=== PATIENT | female | born 1995 | race Caucasian/White ===

== ENCOUNTER 2018-12-03 22:43 | Outpatient (CLI) | payer MEDICAID ==
[~2018-12-03] VITALS: Ht 165.1 cm; Wt 88.2 kg
[2018-12-03 23:26] VITALS: BP 119/70; PULSE 107; RESP 18
[2018-12-03] MEDS ORDERED: PREN-19 PO (23:37)
[2018-12-03] MEDS ORDERED: HYDR250V5 IM (23:37)
[2018-12-04] MEDS ORDERED: LACTATED RINGER'S 1,000 ML IV SCH
[2018-12-04] MEDS ORDERED: LACTATED RINGER'S 1,000 ML IV ONE
--- NOTE | 2018-12-04 04:34 | PN ---
Triage Information Date/Time Reason for visit: Uterine contractions Weeks of Gestation 34+ weeks /Para Diabetes: none Hypertention: none Objective Vital Signs Date Temp Pulse Resp B/P (MAP) Pulse Ox O2 O2 Flow FiO2 Time Delivery Rate 12/03/18 98.2 107 18 119/70 Room Air 23:26 (86) Heart Rate: 120's Results/Medications Result Diagram: 12/04/18 0111 Results 24 hrs Laboratory Tests Test 12/03/18 22:45 12/04/18 01:11 Urine Color YELLOW Urine Clarity SLIGHTLY CLOUDY A Urine pH 7.0 Urine Specific [place] 1.017 Urine Ketones NEGATIVE Urine Nitrite NEGATIVE Urine Bilirubin NEGATIVE Urine Urobilinogen NEGATIVE Urine Leukocyte Esterase 1+ H Urine Microscopic RBC 1 Urine Microscopic WBC 23 H Urine Squamous Epithelial Cells MODERATE Urine Hemoglobin NEGATIVE Urine Glucose 1+ H Urine Total Protein NEGATIVE White Blood Count 9.7 Red Blood Count 3.62 L Hemoglobin 10.5 L Hematocrit 32.4 L Mean Corpuscular Volume 89.5 Mean Corpuscular Hemoglobin 29.0 Mean Corpuscular Hemoglobin Concent 32.4 Red Cell Distribution Width 13.0 Platelet Count 233 Mean Platelet Volume 9.5 Immature Granulocytes % 0.800 H Neutrophils % 59.4 Lymphocytes % 26.1 Monocytes % 10.5 Eosinophils % 2.7 Basophils % 0.5 Nucleated Red Blood Cells % 0.0 Immature Granulocytes # 0.080 H Neutrophils # 5.8 Lymphocytes # 2.5 Monocytes # 1.0 H Eosinophils # 0.3 Basophils # 0.1 Nucleated Red Blood Cells # 0.0 Medications Current Medications Lactated Ringer's 1,000 ml @ 125 mls/hr Q8H IV ; Start 12/04/18 at 00:00 Imaging Results Cervical length normal Disposition: Discharge Assessment/Plan After rest and hydration, patient states her contractions spaced out. JERE ARGUETA MD Dec 04, 2018 04:34
--- NOTE | 2018-12-04 05:26 | TRIAGE ---
OB Triage Datetime Report Generated by CPN: 12/04/2018 05:26 Datetime: 12/04/2018 04:32 Stage of : OB Triage Labor Evaluation Frequency: 130 Monitor Mode: External Quality: Mild Pattern: Normal: <= 5 Contractions in 10 Minutes Resting Tone [place]: Relaxed Heart Rate FHR Baseline Rate: 130 Monitor Mode: External US FHR Baseline Changes: No Baseline Change Variability: Moderate 6-25 bpm Accelerations: 15X15 Decelerations: None Category: Category I Datetime: 12/04/2018 03:38 Stage of : OB Triage Labor Evaluation Frequency: 5-15 Monitor Mode: External Quality: Mild Pattern: Normal: <= 5 Contractions in 10 Minutes Resting Tone [place]: Relaxed Contraction Comments: Pt states she feels ucs q30 min Heart Rate FHR Baseline Rate: 125 Monitor Mode: External US FHR Baseline Changes: No Baseline Change Variability: Moderate 6-25 bpm Accelerations: 15X15 Decelerations: None Category: Category I Datetime: 12/04/2018 02:50 Stage of : OB Triage Labor Evaluation Frequency: 2-6 Monitor Mode: External Duration (sec)2399: 20-40 Quality: Mild Pattern: Normal: <= 5 Contractions in 10 Minutes Resting Tone [place]: Relaxed Heart Rate FHR Baseline Rate: 130 Monitor Mode: External US Variability: Moderate 6-25 bpm Accelerations: 15X15 Decelerations: None Category: Category I Datetime: 12/04/2018 02:13 Vaginal Exam Membrane Status: Intact Datetime: 12/04/2018 02:02 Stage of : OB Triage Labor Evaluation Frequency: 2-15 Monitor Mode: External Duration (sec)2399: 10-50 Quality: Mild Pattern: Normal: <= 5 Contractions in 10 Minutes Resting Tone [place]: Relaxed Contraction Comments: Pt states ucs very mild and occas Heart Rate FHR Baseline Rate: 140 Monitor Mode: External US FHR Baseline Changes: No Baseline Change Variability: Moderate 6-25 bpm Accelerations: 15X15 Decelerations: None Category: Category I Pain Assessment Pain Scale: 2 Pain Presence: Intermittent Pain Type: Cramping Pain Location: Abdomen Datetime: 12/04/2018 01:11 Stage of : OB Triage Labor Evaluation Frequency: 3-6 Monitor Mode: External Quality: Mild Pattern: Normal: <= 5 Contractions in 10 Minutes Resting Tone [place]: Relaxed Heart Rate FHR Baseline Rate: 135 Monitor Mode: External US FHR Baseline Changes: No Baseline Change Variability: Moderate 6-25 bpm Accelerations: 15X15 Decelerations: None Category: Category I Datetime: 12/04/2018 01:07 Stage of : OB Triage Pain Assessment Pain Scale: 4 Pain Presence: Intermittent Pain Type: Cramping Pain Location: Abdomen Datetime: 12/04/2018 00:30 Stage of : OB Triage Heart Rate FHR Baseline Rate: 140 Monitor Mode: External US FHR Baseline Changes: No Baseline Change Variability: Moderate 6-25 bpm Accelerations: 15X15 Decelerations: None Category: Category I Datetime: 12/03/2018 23:58 Stage of : OB Triage Monitor Mode: External Quality: Mild Pattern: Normal: <= 5 Contractions in 10 Minutes Resting Tone [place]: Relaxed Heart Rate FHR Baseline Rate: 130 Monitor Mode: External US FHR Baseline Changes: No Baseline Change Variability: Moderate 6-25 bpm Accelerations: 15X15 Decelerations: None Category: Category I Datetime: 12/03/2018 23:51 Time of Arrival: 12/03/2018 22:45 EGA: 34.3 Arrived By: Ambulatory Arrived From: Home Chief Complaint: hx c/s x2 and ptd on aneesh weekly c/o ucs and back pain Movement: Present Contractions: Irregular Time Contractions Began: 12/03/2018 09:00 Contractions: q5-15 Rupture of Membranes: Denies Vaginal Bleeding: None Vaginal Discharge: Denies Recent Sexual Intercouse: Denies Abdominal Trauma: Not Applicable Patient Complaints: Contractions; Back Pain Time Provider Notified: 12/03/2018 23:30 Provider Notified: Dr Fortune Initial Plan: EFM,UA,CVL,EFW,BPP Datetime: 12/03/2018 23:30 Stage of : OB Triage Labor Evaluation Frequency: 2-5 Monitor Mode: External Quality: Mild Pattern: Normal: <= 5 Contractions in 10 Minutes Resting Tone [place]: Relaxed Heart Rate FHR Baseline Rate: 140 Monitor Mode: External US FHR Baseline Changes: No Baseline Change Variability: Moderate 6-25 bpm Accelerations: 15X15 Decelerations: None Category: Category I Datetime: 12/03/2018 23:00 Stage of : OB Triage Maternal Assessment Level of Consciousness: Fully Conscious Headache: Denies Blurred Vision: No Nausea/Vomiting: Denies RUQ Epigastric Pain: Denies Facial Edema: None Monitor Mode: External Resting Tone [place]: Relaxed Heart Rate FHR Baseline Rate: 140 Monitor Mode: External US Pain Assessment Pain Scale: 8 Pain Presence: Intermittent Pain Type: Cramping; Pressure; Ache Pain Location: Abdomen; Back
== END 2018-12-04 04:47 | disposition home or self-care (01) ==
LOC: OBT 22:43 → L-D 22:44 → OBT 12-04 04:47
PROVIDERS: ATTEND Obstetrics & Gynecology
DX: O62.9 Abnormality of forces of labor, unspecified (principal); Z3A.34 34 weeks gestation of pregnancy
CPT/HCPCS: 36415; 76815; 76817; 76818; 81001; 85025; 96360; 96361; J7120; Z7500; G0463

== ENCOUNTER 2018-12-05 10:13 | Outpatient (CLI) | payer MEDICAID ==
[~2018-12-05] VITALS: Ht 170.2 cm; Wt 86.7 kg
[~2018-12-05 10:13] MED LIST: HYDR250V5 IM; PREN-19 PO
[2018-12-05 10:59] VITALS: BP 125/71; PULSE 109; RESP 18; Ht 170.2 cm; Wt 86.7 kg
[2018-12-05] MEDS ORDERED: LACTATED RINGER'S 1,000 ML IV SCH (11:30)
[2018-12-05] MEDS ORDERED: TERBUTALINE 1 MG/ML INJ SC ONE (11:30)
--- NOTE | 2018-12-05 13:42 | TRIAGE ---
OB Triage Datetime Report Generated by CPN: 12/05/2018 13:42 Datetime: 12/05/2018 12:58 Stage of : OB Triage Datetime: 12/05/2018 12:40 Frequency: 0 Monitor Mode: External Pattern: Normal: <= 5 Contractions in 10 Minutes Resting Tone [place]: Relaxed FHR Baseline Rate: 135 Monitor Mode: External US Variability: Moderate 6-25 bpm Accelerations: 10X10 Decelerations: None Category: Category I Pain Scale: 0 Pain Presence: None/Denies Pain Type: N/A Pain Goal: 3 Pain Relief Measures: Comfort Measures Datetime: 12/05/2018 11:43 Frequency: 4-6 Monitor Mode: External Duration (sec)2399: 30-40 Quality: Mild Pattern: Normal: <= 5 Contractions in 10 Minutes Resting Tone [place]: Relaxed FHR Baseline Rate: 135 Monitor Mode: External US Variability: Moderate 6-25 bpm Accelerations: 10X10 Decelerations: None Category: Category I Pain Scale: 7 Pain Presence: Intermittent Pain Type: Cramping Pain Location: Abdomen; Back; Perineum Pain Goal: 3 Pain Relief Measures: Comfort Measures Datetime: 12/05/2018 11:00 Stage of : OB Triage Datetime: 12/05/2018 10:45 Stage of : OB Triage Assessment Type: Triage Level of Consciousness: Fully Conscious DTR's/Clonus: DTRs 2+; No Clonus Headache: Denies Blurred Vision: No Respiratory Effort: Unlabored; Regular Rhythm; Equal Expansion Breath Sounds, Left: Clear and Equal Breath Sounds, Right: Clear and Equal Nausea/Vomiting: Denies RUQ Epigastric Pain: Denies Facial Edema: None Temperature Route: Axillary History of Falling: (0) No Secondary Diagnosis: (0) No Ambulatory Aid: (0) Bedrest/Nurse Assist IV Therapy: (0) No Gait: (0) Normal/Bedrest/Immobile Mental Status: (0) Oriented to Own Ability Fall Score: 0 Fall Risk Score Definition: No Risk: No action required Frequency: 5-6 Monitor Mode: External Duration (sec)2399: 30-50 Quality: Mild Pattern: Normal: <= 5 Contractions in 10 Minutes Resting Tone [place]: Relaxed FHR Baseline Rate: 135 Monitor Mode: External US Variability: Moderate 6-25 bpm Accelerations: None Decelerations: None Category: Category I Pain Scale: 8 Pain Presence: Intermittent Pain Type: Cramping Pain Location: Abdomen; Back Pain Goal: 3 Pain Relief Measures: Comfort Measures Datetime: 12/05/2018 10:44 Time of Arrival: 12/05/2018 10:10 EGA: 34.5 Arrived By: Ambulatory Arrived From: Dr. Bui Chief Complaint: REFERRED FROM CLINIC THIS AM TO R/O PTL, DENIES BLEEDING OR LEAKING OF FLUID, SOME INCONSISTANT ABDOMINAL PAIN Movement: Present Contractions: Occasional Rupture of Membranes: Denies Vaginal Bleeding: None Vaginal Discharge: Denies Recent Sexual Intercouse: Denies Abdominal Trauma: Not Applicable Patient Complaints: Cramping Time Provider Notified: 12/05/2018 11:00 Provider Notified: RUBI Initial Plan: MONITOR, U/A, BPP, CL, IV HYDRATION, TERB
--- NOTE | 2018-12-05 15:18 | PN ---
Triage Information Date/Time December 05, 2018 Reason for visit: Weeks of Gestation 34 weeks and 5 days /Para 3 para 2 Diabetes: none Hypertention: none Additional information 22-year-old with IUP at 34 weeks and 5 days times presented with complaint of uterine contractions. She denied any leaking of fluid, vaginal bleeding or decreased movement. She was seen 2 days ago with the similar symptoms and had been ruled out for labor. Patient received IV hydration and a dose of terbutaline ordered by primary OB attending. Symptoms resolved. Objective Vital Signs Date Temp Pulse Resp B/P (MAP) Pulse Ox O2 O2 Flow FiO2 Time Delivery Rate 12/05/18 98.2 109 18 125/71 10:59 (89) Heart Rate: 130's Heart Rate Comments Category 1 Exam General appearance: Alert and oriented x4 does not appear to be in any acute distress Abdomen: Soft, gravid, fundal height consider gestational age NST: Category 1 Initial location contraction noted on the monitor and resolved after hydration and a dose of terbutaline UA negative BPP: 8/8 Cervical length: 4.1 GEO: 18.2 Laboratory Tests Test 12/05/18 10:45 Urine Color STRAW Urine Clarity SLIGHTLY CLOUDY A Urine pH 6.0 Urine Specific [place] 1.005 Urine Ketones NEGATIVE Urine Nitrite NEGATIVE Urine Bilirubin NEGATIVE Urine Urobilinogen NEGATIVE Urine Leukocyte Esterase TRACE A Urine Microscopic RBC 4 Urine Microscopic WBC 4 Urine Squamous Epithelial Cells FEW Urine Bacteria FEW A Urine Hemoglobin NEGATIVE Urine Glucose NEGATIVE Urine Total Protein NEGATIVE Results/Medications Results 24 hrs Laboratory Tests Test 12/05/18 10:45 Urine Color STRAW Urine Clarity SLIGHTLY CLOUDY A Urine pH 6.0 Urine Specific [place] 1.005 Urine Ketones NEGATIVE Urine Nitrite NEGATIVE Urine Bilirubin NEGATIVE Urine Urobilinogen NEGATIVE Urine Leukocyte Esterase TRACE A Urine Microscopic RBC 4 Urine Microscopic WBC 4 Urine Squamous Epithelial Cells FEW Urine Bacteria FEW A Urine Hemoglobin NEGATIVE Urine Glucose NEGATIVE Urine Total Protein NEGATIVE Imaging Results PROCEDURE: US OB biophysical profile. Ultrasound cervix CLINICAL INDICATION: decreased movements, labor TECHNIQUE: Multiple sonographic images of the pelvis were obtained. In addition, transvaginal images of the cervix were obtained. The images were reviewed on a PACS workstation. COMPARISON: No prior studies are available for comparison. FINDINGS: The cervix measures 4.1 cm in length. There is a single live intrauterine gestation. Cardiac activity is present with 140 beats per minute. There is a vertex presentation. The placenta is fundal. There is no evidence of placental abruption. There is a normal amount of amniotic fluid with an GEO = 18.2 cm. Biophysical profile: movement 2/2 tone 2/2. breathing 2/2 GEO 2/2 Total 05/08 RPTAT: AA . IMPRESSION: Normal biophysical profile. Cervix measures 4.1 cm in length. Disposition: Discharge Assessment/Plan IUP at 34 weeks and 5 days History of x2 contraction, resolved after IV hydration and a dose of terbutaline ordered by primary OB attending Symptoms resolved No evidence of labor Patient doing well. Denies any symptoms. Patient will be discharged home in stable condition Strict labor precaution and kick count and follow-up within 24 hours with primary OB attending discussed with patient Advised the patient to have rest at home with adequate p.o. hydration avoid of sexual intercourse and return to triage if she has any other episodes of lower abdominal pain or contractions, decreased movements vaginal bleeding or any other concerns. Patient verbalized understanding. [place] interpretation used. All questions were answered to patient's best satisfaction. ELIZABETH NEFF MD Dec 05, 2018 15:18
== END 2018-12-05 13:15 | disposition home or self-care (01) ==
LOC: OBT 10:13 → L-D 10:16 → OBT 13:15
PROVIDERS: ATTEND Obstetrics & Gynecology
DX: O62.9 Abnormality of forces of labor, unspecified (principal); Z3A.34 34 weeks gestation of pregnancy
CPT/HCPCS: 36415; 76817; 76818; 81001; 87086; 96360; 96361; 96372; J3105; J7120; Z7500; G0463

== ENCOUNTER 2018-12-08 09:50 | Inpatient (IN) | payer MEDICAID ==
[~2018-12-08] VITALS: Ht 165.1 cm; Wt 85.6 kg
[2018-12-08 09:56] VITALS: Ht 165.1 cm; Wt 85.6 kg
--- NOTE | 2018-12-08 11:19 | TRIAGE ---
OB Triage Datetime Report Generated by CPN: 12/08/2018 11:18 Datetime: 12/08/2018 11:18 Assessment Type: Admission Assessment Maternal Assessment Level of Consciousness: Fully Conscious DTR's/Clonus: DTRs 2+; No Clonus Headache: Denies Blurred Vision: No Respiratory Effort: Unlabored; Regular Rhythm; Equal Expansion Breath Sounds, Left: Clear and Equal Breath Sounds, Right: Clear and Equal Nausea/Vomiting: Denies RUQ Epigastric Pain: Denies Facial Edema: None Fall Risk Assessment History of Falling: (0) No Secondary Diagnosis: (0) No Ambulatory Aid: (0) Bedrest/Nurse Assist IV Therapy: (0) No Gait: (0) Normal/Bedrest/Immobile Mental Status: (0) Oriented to Own Ability Fall Score: 0 Fall Risk Score Definition: No Risk: No action required Datetime: 12/08/2018 11:00 Stage of : OB Triage Maternal Assessment Level of Consciousness: Fully Conscious DTR's/Clonus: DTRs 1+ Headache: Denies Breath Sounds, Left: Clear and Equal Breath Sounds, Right: Clear and Equal Nausea/Vomiting: Denies RUQ Epigastric Pain: Denies Labor Evaluation Frequency: NONE Monitor Mode: External Resting Tone [place]: Relaxed Heart Rate FHR Baseline Rate: 145 Monitor Mode: External US Variability: Moderate 6-25 bpm Accelerations: 15X15 Decelerations: Variable Category: Category I Pain Assessment Pain Scale: 3 Pain Presence: Constant Pain Type: Ache Pain Location: Abdomen Pain Goal: 3 Vaginal Exam Membrane Status: Intact Datetime: 12/08/2018 10:46 Comments: vARIABLE NOTED BASELINE 145 BPM, DOWN TO ABOUT 100 FOR ABOUT 60 SEC AND GOING BACK TO BAS VENITA. PT REPOSITIONED Datetime: 12/08/2018 10:30 Maternal Assessment Level of Consciousness: Fully Conscious DTR's/Clonus: DTRs 1+ Headache: Denies Blurred Vision: No Respiratory Effort: Unlabored Breath Sounds, Left: Clear and Equal Breath Sounds, Right: Clear and Equal Nausea/Vomiting: Denies RUQ Epigastric Pain: Denies Facial Edema: None Labor Evaluation Frequency: NONE Monitor Mode: External Resting Tone [place]: Relaxed Heart Rate FHR Baseline Rate: 145 Monitor Mode: External US Variability: Moderate 6-25 bpm Accelerations: 15X15 Decelerations: Variable Category: Category I Pain Assessment Pain Scale: 3 Pain Presence: Constant Pain Type: Ache Pain Location: Abdomen Pain Goal: 3 Pain Assessment Comments: INCISIONAL PAIN Vaginal Exam Membrane Status: Intact Datetime: 12/08/2018 09:58 Assessment Type: Triage Maternal Assessment Level of Consciousness: Fully Conscious DTR's/Clonus: DTRs 2+; No Clonus Headache: Denies Blurred Vision: No Respiratory Effort: Unlabored; Regular Rhythm; Equal Expansion Breath Sounds, Left: Clear and Equal Breath Sounds, Right: Clear and Equal Nausea/Vomiting: Denies RUQ Epigastric Pain: Denies Lower Extremities Edema: None Degree: None Upper Extremities Edema: None Degree: None Facial Edema: None Fall Risk Assessment History of Falling: (0) No Secondary Diagnosis: (0) No Ambulatory Aid: (0) Bedrest/Nurse Assist IV Therapy: (0) No Gait: (0) Normal/Bedrest/Immobile Mental Status: (0) Oriented to Own Ability Fall Score: 0 Fall Risk Score Definition: No Risk: No action required Datetime: 12/08/2018 09:43 Time of Arrival: 12/08/2018 11:00 EGA: 35.1 Arrived By: Ambulatory Arrived From: Home Chief Complaint: PT CAME IN C/O DFM SINCE 2 DAYS AGO PT ALSO COMPLAINING ABOUT INCION PAIN Movement: Decreased Contractions: Denies/Absent Rupture of Membranes: Denies Vaginal Discharge: Denies Recent Sexual Intercouse: Denies Abdominal Trauma: Not Applicable Additional Patient Complaints: NONE Time Provider Notified: 12/08/2018 10:00 Provider Notified: ESHAGHIAN Initial Plan: NST BPP Datetime: 12/05/2018 10:45 Fall Score: 0 Fall Risk Score Definition: No Risk: No action required Datetime: 12/05/2018 10:44 EGA: 34.5 Datetime: 12/03/2018 23:51 EGA: 34.3
[2018-12-08] MEDS: LACTATED RINGER'S 1,000 ML IV SCH ×2 (13:16→20:08)
--- NOTE | 2018-12-08 13:39 | HP ---
Date/Time of Note Date/Time of Note DATE: 12/08/18 TIME: 13:36 OB - History Hx of Present Free Text/Dictation 35+wks GA with Decreased movements and Non reassuring FHR Care: Good Care Ultrasounds: Normal mid trimester US Medical Complications: None Past Family/Social History * Past Medical, Surgical, Family and Obstetric Histories reviewed from chart. OB Admission Exam Physical Exam Abdomen: WNL Extremities: Normal Reflexes: Normal Membranes: Intact Heart Rate: 140's Decelerations: Variable Decelerations Varibility: Moderate Contractions on Admission: None Last 72 hours Lab Results CBC & BMP 12/08/18 13:24 OB Assessment/Plan Reason for admission: observation Other Assessment: PMH denies PSH denies Allergy NKDA Plan: Expectant Management Other plan: Prolonged monitoring and observation over night IV Hydration Patint is evaluated on behalf of and will follow up on the patent JUAN WISE M.D. Dec 08, 2018 13:39
[2018-12-08] MEDS ORDERED: TERBUTALINE 1 MG/ML INJ SC ONE (19:30)
[2018-12-08] MEDS: DEXAMETHASONE 4 MG/ML 5 ML INJ IM SCH (20:28)
[2018-12-09] MEDS: LACTATED RINGER'S 1,000 ML IV SCH ×3 (03:40→19:22)
[2018-12-09] MEDS: DEXAMETHASONE 4 MG/ML 5 ML INJ IM SCH ×2 (08:33→20:03)
[2018-12-09] MEDS: PRENATAL VITAMIN PO SCH (08:59)
[2018-12-09] MEDS ORDERED: FERROUS SULFATE (EC) 325 MG TAB PO SCH (09:00)
--- NOTE | 2018-12-09 09:09 | QN ---
Documentation Comment patient seen and evaluated no complaints positive movement no contraction no pain vs stable afebrile ab gravid nt extremity no edema no calf tenderness fhr cat 1 toco no ctx a/ iup at 35 wks ga, currently on steroid tx, no sign of labor reassuring heart tracing p/ continue present management perinatology consult repeat urine culture FRANCY VENEGAS MD Dec 09, 2018 09:09
[2018-12-09] MEDS: FERROUS SULFATE (EC) 325 MG TAB PO SCH (21:20)
--- NOTE | 2018-12-10 03:02 | CONS ---
DATE OF ADMISSION: 12/08/2018 DATE OF CONSULTATION: 12/09/2018 HISTORY OF PRESENT ILLNESS: The patient is a G3, P2 at 35 weeks and 2 days, presented with complaint of incisional pain. She was given IV hydration and dexamethasone. She has received 2 doses out of 4 doses. After reviewing the heart monitor, first of all, there are some irritabilities with very infreq uent contractions; however, there is some evidence of early deceleration and 1 possible subtle late, but overall reassuring. RECOMMENDATIONS: To manage the patient in-house with continuous heart tone monitoring. Comple te the dexamethasone. Delivery is recommended in labor if more frequent late deceleration or overall nonreassuring heart tone, otherwise, at 39 weeks; however, if the patient is discharge d, heart tone monitoring twice a week is necessary to assure well-being. Dictated By: ZACK CARLOS MD ST/NTS Conf#: [id number] DID#: [id number] CC: FRANCY VENEGAS MD;*EndCC*
[2018-12-10] MEDS: LACTATED RINGER'S 1,000 ML IV SCH ×4 (03:08→21:47)
[2018-12-10] MEDS: DEXAMETHASONE 4 MG/ML 5 ML INJ IM SCH (08:50)
[2018-12-10] MEDS: FERROUS SULFATE (EC) 325 MG TAB PO SCH ×2 (09:31→21:46)
[2018-12-10] MEDS: PRENATAL VITAMIN PO SCH (09:31)
--- NOTE | 2018-12-10 18:58 | QN ---
Documentation Comment patient seen and evaluated no complaints positive movement no contraction no pain vs stable afebrile ab gravid nt extremity no edema no calf tenderness fhr cat 1 toco no ctx a/ iup at 35 wks ga, currently on steroid tx, no sign of labor reassuring heart tracing p/ continue present management f/u perinatology repeat urine culture FRANCY VENEGAS MD Dec 10, 2018 18:58
[2018-12-11] MEDS: LACTATED RINGER'S 1,000 ML IV SCH (03:34)
[2018-12-11] MEDS: FERROUS SULFATE (EC) 325 MG TAB PO SCH (10:34)
[2018-12-11] MEDS: PRENATAL VITAMIN PO SCH (10:34)
--- NOTE | 2018-12-11 19:19 | DS ---
DATE OF ADMISSION: 12/08/2018 DATE OF DISCHARGE: 12/11/2018 PRIMARY DIAGNOSIS: Intrauterine at 35+ weeks gestational age, decreased movement wit h category 2 tracing. PROCEDURE: None. CONDITION ON DISCHARGE: Stable. DIET: Regular. MEDICATIONS ON DISCHARGE: Continue vitamins. DISCHARGE SUMMARY: Ms. Kelly Wilkerson is a 22-year-old female with the history of previous who was admitted on 12/08/2018 secondary to decreased movement and non-reassuring heart t racing. She was admitted for IV hydration and continued close monitoring. During close monitoring, she had a category 1 tracing with an appropriate biophysical profile. Her tracing was evaluated by Edward Laird who recommends discharge today. The patient was given strict kick count and will foll ow up in the office tomorrow. Orders for nonstress test and biophysical profile were given twice kiki simeon. Dictated By: FRANCY ESTRADA/KATHY Conf#: [id number] DID#: [id number]
== END 2018-12-11 18:15 | disposition home or self-care (01) | DRG 833 ==
LOC: OBT 09:50 → L-D 09:51 → OBT 11:00 → L-D 15:22
PROVIDERS: ADMIT Obstetrics & Gynecology; ATTEND Obstetrics & Gynecology
PROC: 4A1HXCZ Monitoring of Products of Conception, Cardiac Rate, External Approach (ICD-10-PCS; principal; 2018-12-08)
DX: O36.8130 Decreased fetal movements, third trimester, not applicable or unspecified (principal); O76 Abnormality in fetal heart rate and rhythm complicating labor and delivery; O34.219 Maternal care for unspecified type scar from previous cesarean delivery; Z3A.35 35 weeks gestation of pregnancy
CPT/HCPCS: 76818; 80307; 81001; 81003; 85025; 86592; 86900; 86901; 87086; G0463; J1100; J3105; J7120

== ENCOUNTER 2018-12-27 11:18 | Inpatient (IN) | payer MEDICAID ==
[~2018-12-27] VITALS: Ht 170.2 cm; Wt 87.6 kg
[~2018-12-27 11:18] MED LIST changes: -HYDR250V5 IM; +OXYTOCIN 30 UNITS/LR 500 ML BAG IV ONE
[2018-12-27 11:25] VITALS: Ht 170.2 cm; Wt 87.6 kg
[2018-12-27 11:26] VITALS: BP 122/65
[2018-12-27] MEDS ORDERED: LACTATED RINGER'S 1,000 ML IV ONE ×2 (12:00→12:30)
[2018-12-27] MEDS ORDERED: LACTATED RINGER'S 1,000 ML IV SCH ×2 (13:35→22:36)
--- NOTE | 2018-12-27 13:40 | TRIAGE ---
OB Triage Datetime Report Generated by CPN: 12/27/2018 13:39 Datetime: 12/27/2018 12:57 Stage of : OB Triage Labor Evaluation Frequency: IREGULAR Monitor Mode: External Duration (sec)2399: 50 Pattern: Normal: <= 5 Contractions in 10 Minutes Resting Tone Mccleary: Relaxed Heart Rate FHR Baseline Rate: 145 Monitor Mode: External US Accelerations: 15X15 Decelerations: None Category: Category I Pain Assessment Pain Scale: 8 Pain Presence: Constant Pain Type: Contraction Pain Location: Abdomen Pain Goal: 0 Pain Relief Measures: Comfort Measures Datetime: 12/27/2018 11:45 Stage of : OB Triage Labor Evaluation Frequency: IRREGULAR Monitor Mode: External Duration (sec)2399: 60 Pattern: Normal: <= 5 Contractions in 10 Minutes Resting Tone Mccleary: Relaxed Heart Rate FHR Baseline Rate: 145 Monitor Mode: External US Variability: Moderate 6-25 bpm Accelerations: 15X15 Decelerations: None Category: Category I Pain Assessment Pain Scale: 7 Pain Presence: Constant Pain Type: Pressure; Ache Pain Location: Abdomen Pain Goal: 0 Pain Relief Measures: Comfort Measures Datetime: 12/27/2018 11:28 Time of Arrival: 12/27/2018 11:13 EGA: 37.6 Arrived By: Ambulatory Arrived From: Home Chief Complaint: C/O PRESSURE AND PAIN INCSIONAL Movement: Present Contractions: Irregular Rupture of Membranes: Denies Vaginal Bleeding: None Vaginal Discharge: Denies Recent Sexual Intercouse: Denies Abdominal Trauma: Not Applicable Patient Complaints: Contractions Time Provider Notified: 12/27/2018 11:40 Provider Notified: DR. ANGELINE Initial Plan: NST BPP UA C/S, IV HYDRATION Datetime: 12/11/2018 17:14 Labor Evaluation Frequency: 1 Monitor Mode: External Duration (sec)2399: 60 Quality: Mild Resting Tone Mccleary: Relaxed Heart Rate FHR Baseline Rate: 140 Monitor Mode: External US FHR Baseline Changes: No Baseline Change Variability: Moderate 6-25 bpm Accelerations: 15X15 Decelerations: None Category: Category I Datetime: 12/11/2018 16:02 Labor Evaluation Frequency: occasional Monitor Mode: External Quality: Mild Resting Tone Mccleary: Relaxed Heart Rate FHR Baseline Rate: 145 Monitor Mode: External US FHR Baseline Changes: No Baseline Change Variability: Moderate 6-25 bpm Accelerations: 15X15 Decelerations: None Category: Category I Pain Presence: None/Denies Datetime: 12/11/2018 15:06 Labor Evaluation Frequency: occasional Monitor Mode: External Quality: Mild Resting Tone Mccleary: Relaxed Heart Rate FHR Baseline Rate: 140 Monitor Mode: External US FHR Baseline Changes: No Baseline Change Variability: Moderate 6-25 bpm Accelerations: 15X15 Decelerations: None Category: Category I Pain Presence: None/Denies Datetime: 12/11/2018 14:06 Labor Evaluation Frequency: 0 Monitor Mode: External Resting Tone Mccleary: Relaxed Heart Rate FHR Baseline Rate: 140 Monitor Mode: External US FHR Baseline Changes: No Baseline Change Variability: Moderate 6-25 bpm Accelerations: 15X15 Decelerations: None Category: Category I Datetime: 12/11/2018 12:55 Labor Evaluation Frequency: 0 Monitor Mode: External Resting Tone Mccleary: Relaxed Heart Rate FHR Baseline Rate: 130 Monitor Mode: External US FHR Baseline Changes: No Baseline Change Variability: Moderate 6-25 bpm Accelerations: 15X15 Decelerations: None Category: Category I Pain Presence: None/Denies Datetime: 12/11/2018 12:08 Labor Evaluation Frequency: 0 Monitor Mode: External Resting Tone Mccleary: Relaxed Heart Rate FHR Baseline Rate: 130 Monitor Mode: External US FHR Baseline Changes: No Baseline Change Variability: Moderate 6-25 bpm Accelerations: 15X15 Decelerations: None Category: Category I Datetime: 12/11/2018 11:30 Labor Evaluation Frequency: 0 Monitor Mode: External Resting Tone Mccleary: Relaxed Heart Rate FHR Baseline Rate: 130 Monitor Mode: External US FHR Baseline Changes: No Baseline Change Variability: Moderate 6-25 bpm Accelerations: 15X15 Decelerations: None Category: Category I Datetime: 12/11/2018 10:54 Labor Evaluation Frequency: 2 Monitor Mode: External Duration (sec)2399: 40 Quality: Mild Resting Tone Mccleary: Relaxed Heart Rate FHR Baseline Rate: 140 Monitor Mode: External US FHR Baseline Changes: No Baseline Change Variability: Moderate 6-25 bpm Accelerations: 15X15 Decelerations: None Category: Category I Datetime: 12/11/2018 09:49 Labor Evaluation Frequency: occasional Monitor Mode: External Quality: Mild Resting Tone Mccleary: Relaxed Heart Rate FHR Baseline Rate: 140 Monitor Mode: External US FHR Baseline Changes: No Baseline Change Variability: Moderate 6-25 bpm Accelerations: 15X15 Decelerations: None Category: Category I Pain Presence: None/Denies Datetime: 12/11/2018 07:44 Assessment Type: Ongoing Assessment Maternal Assessment Level of Consciousness: Fully Conscious DTR's/Clonus: DTRs 2+; No Clonus Headache: Denies Blurred Vision: No Respiratory Effort: Unlabored; Regular Rhythm; Equal Expansion Breath Sounds, Left: Clear and Equal Breath Sounds, Right: Clear and Equal Nausea/Vomiting: Denies RUQ Epigastric Pain: Denies Facial Edema: None Fall Risk Assessment History of Falling: (0) No Secondary Diagnosis: (0) No Ambulatory Aid: (0) Bedrest/Nurse Assist IV Therapy: (20) Yes Gait: (0) Normal/Bedrest/Immobile Mental Status: (0) Oriented to Own Ability Fall Score: 20 Fall Risk Score Definition: No Risk: No action required Datetime: 12/11/2018 07:43 Labor Evaluation Frequency: 0 Monitor Mode: External Resting Tone Mccleary: Relaxed Heart Rate FHR Baseline Rate: 130 Monitor Mode: External US FHR Baseline Changes: No Baseline Change Variability: Moderate 6-25 bpm Accelerations: 15X15 Decelerations: None Category: Category I Pain Presence: None/Denies Datetime: 12/11/2018 07:00 Monitor Mode: External Pattern: Normal: <= 5 Contractions in 10 Minutes Contraction Comments: occasional Heart Rate FHR Baseline Rate: 135 Monitor Mode: External US FHR Baseline Changes: No Baseline Change Variability: Moderate 6-25 bpm Accelerations: 15X15 Datetime: 12/11/2018 06:00 Monitor Mode: External Pattern: Normal: <= 5 Contractions in 10 Minutes Heart Rate FHR Baseline Rate: 125 Monitor Mode: External US FHR Baseline Changes: No Baseline Change Variability: Moderate 6-25 bpm Accelerations: 15X15 Datetime: 12/11/2018 05:00 Labor Evaluation Frequency: X3 Monitor Mode: External Duration (sec)2399: 60 Pattern: Normal: <= 5 Contractions in 10 Minutes Heart Rate FHR Baseline Rate: 145 Monitor Mode: External US FHR Baseline Changes: No Baseline Change Variability: Moderate 6-25 bpm Datetime: 12/11/2018 04:00 Labor Evaluation Frequency: X3 Monitor Mode: External Pattern: Normal: <= 5 Contractions in 10 Minutes Heart Rate FHR Baseline Rate: 125 Monitor Mode: External US FHR Baseline Changes: No Baseline Change Variability: Moderate 6-25 bpm Accelerations: 15X15 Datetime: 12/11/2018 03:00 Labor Evaluation Frequency: OCC Monitor Mode: External Pattern: Normal: <= 5 Contractions in 10 Minutes Heart Rate FHR Baseline Rate: 130 Monitor Mode: External US FHR Baseline Changes: No Baseline Change Variability: Moderate 6-25 bpm Datetime: 12/11/2018 02:00 Labor Evaluation Frequency: 0 Monitor Mode: External Pattern: Normal: <= 5 Contractions in 10 Minutes Heart Rate FHR Baseline Rate: 135 Monitor Mode: External US FHR Baseline Changes: No Baseline Change Variability: Marked >25 bpm Accelerations: 15X15 Datetime: 12/11/2018 01:00 Monitor Mode: External Pattern: Normal: <= 5 Contractions in 10 Minutes Heart Rate FHR Baseline Rate: 135 Monitor Mode: External US FHR Baseline Changes: No Baseline Change Variability: Moderate 6-25 bpm Datetime: 12/11/2018 00:15 Pain Assessment Comments: patient states pain has resolved Datetime: 12/11/2018 00:00 Labor Evaluation Frequency: occ Monitor Mode: External Pattern: Normal: <= 5 Contractions in 10 Minutes Heart Rate FHR Baseline Rate: 135 Monitor Mode: External US FHR Baseline Changes: No Baseline Change Variability: Moderate 6-25 bpm Accelerations: 15X15 Datetime: 12/10/2018 23:36 Monitor Mode: Palpation Resting Tone Mccleary: Relaxed Datetime: 12/10/2018 23:32 Monitor Mode: Palpation Quality: Moderate Datetime: 12/10/2018 23:05 Pain Assessment Comments: PATIENT C/O LEFT LATERAL SIDE PAIN Datetime: 12/10/2018 23:00 Monitor Mode: External Pattern: Normal: <= 5 Contractions in 10 Minutes Heart Rate FHR Baseline Rate: 125 Monitor Mode: External US FHR Baseline Changes: No Baseline Change Variability: Moderate 6-25 bpm Accelerations: 15X15 Datetime: 12/10/2018 22:00 Labor Evaluation Frequency: 0 Monitor Mode: External Duration (sec)2399: 0 Pattern: Normal: <= 5 Contractions in 10 Minutes Heart Rate FHR Baseline Rate: 130 Monitor Mode: External US FHR Baseline Changes: No Baseline Change Variability: Moderate 6-25 bpm Datetime: 12/10/2018 21:00 Labor Evaluation Frequency: 0 Monitor Mode: External Duration (sec)2399: 0 Pattern: Normal: <= 5 Contractions in 10 Minutes Heart Rate FHR Baseline Rate: 130 Monitor Mode: External US FHR Baseline Changes: No Baseline Change Variability: Moderate 6-25 bpm Decelerations: None Category: Category I Datetime: 12/10/2018 20:31 Assessment Type: Ongoing Assessment Maternal Assessment Level of Consciousness: Fully Conscious Headache: Denies Blurred Vision: No Respiratory Effort: Unlabored; Regular Rhythm; Equal Expansion Breath Sounds, Left: Clear and Equal Breath Sounds, Right: Clear and Equal Nausea/Vomiting: Denies RUQ Epigastric Pain: Denies Lower Extremities Edema: None Degree: None Upper Extremities Edema: None Degree: None Facial Edema: None Fall Risk Assessment History of Falling: (0) No Secondary Diagnosis: (0) No Ambulatory Aid: (0) Bedrest/Nurse Assist IV Therapy: (20) Yes Gait: (0) Normal/Bedrest/Immobile Mental Status: (0) Oriented to Own Ability Fall Score: 20 Fall Risk Score Definition: No Risk: No action required Datetime: 12/10/2018 20:01 Comments: movement audible Datetime: 12/10/2018 20:00 Labor Evaluation Frequency: 0 Monitor Mode: External Duration (sec)2399: 0 Pattern: Normal: <= 5 Contractions in 10 Minutes Heart Rate FHR Baseline Rate: 135 Monitor Mode: External US FHR Baseline Changes: No Baseline Change Variability: Moderate 6-25 bpm Accelerations: 15X15 Datetime: 12/10/2018 19:56 Temperature Route: Oral Pain Assessment Pain Scale: 0 Pain Presence: None/Denies Pain Type: N/A Pain Assessment Comments: patient reports that she is no longer feeling abd pain or 'incisional' pa in. Datetime: 12/10/2018 19:00 Labor Evaluation Frequency: 0 Monitor Mode: External Resting Tone Mccleary: Relaxed Heart Rate FHR Baseline Rate: 140 Monitor Mode: External US FHR Baseline Changes: No Baseline Change Variability: Moderate 6-25 bpm Accelerations: 15X15 Decelerations: None Category: Category I Datetime: 12/10/2018 18:00 Stage of : Antepartum Labor Evaluation Frequency: 0 Monitor Mode: External Pattern: Normal: <= 5 Contractions in 10 Minutes Heart Rate FHR Baseline Rate: 140 Monitor Mode: External US FHR Baseline Changes: No Baseline Change Variability: Moderate 6-25 bpm Accelerations: 15X15 Decelerations: None Category: Category I Datetime: 12/10/2018 17:02 Labor Evaluation Frequency: OCC Monitor Mode: External Quality: Mild Pattern: Normal: <= 5 Contractions in 10 Minutes Heart Rate FHR Baseline Rate: 130 Monitor Mode: External US FHR Baseline Changes: No Baseline Change Variability: Moderate 6-25 bpm Accelerations: 15X15 Decelerations: None Category: Category I Datetime: 12/10/2018 17:01 Stage of : Antepartum Temperature Route: Oral Pain Assessment Pain Scale: 0 Pain Presence: None/Denies Pain Goal: 0 Datetime: 12/10/2018 16:00 Labor Evaluation Frequency: OCC Monitor Mode: External Duration (sec)2399: 60 Quality: Mild Resting Tone Mccleary: Relaxed Heart Rate FHR Baseline Rate: 130 Monitor Mode: External US FHR Baseline Changes: No Baseline Change Variability: Moderate 6-25 bpm Accelerations: 15X15 Decelerations: None Category: Category I Datetime: 12/10/2018 15:00 Labor Evaluation Frequency: none Monitor Mode: External Pattern: Normal: <= 5 Contractions in 10 Minutes Heart Rate FHR Baseline Rate: 130 Monitor Mode: External US Variability: Moderate 6-25 bpm Accelerations: 15X15 Decelerations: None Category: Category I Datetime: 12/10/2018 14:00 Labor Evaluation Frequency: 0 Monitor Mode: External Pattern: Normal: <= 5 Contractions in 10 Minutes Resting Tone Mccleary: Relaxed Heart Rate FHR Baseline Rate: 130 Monitor Mode: External US FHR Baseline Changes: No Baseline Change Variability: Moderate 6-25 bpm Accelerations: 15X15 Decelerations: None Category: Category I Datetime: 12/10/2018 13:00 Labor Evaluation Frequency: 0 Monitor Mode: External Pattern: Normal: <= 5 Contractions in 10 Minutes Resting Tone Mccleary: Relaxed Heart Rate FHR Baseline Rate: 130 Monitor Mode: External US FHR Baseline Changes: No Baseline Change Variability: Moderate 6-25 bpm Accelerations: 15X15 Decelerations: None Category: Category I Datetime: 12/10/2018 12:12 Labor Evaluation Frequency: 0 Monitor Mode: External Resting Tone Mccleary: Relaxed Heart Rate FHR Baseline Rate: 140 Monitor Mode: External US FHR Baseline Changes: No Baseline Change Variability: Moderate 6-25 bpm Accelerations: 15X15 Decelerations: None Category: Category I Datetime: 12/10/2018 12:11 Stage of : Antepartum Temperature Route: Oral Pain Assessment Pain Scale: 0 Pain Presence: None/Denies Pain Goal: 0 Datetime: 12/10/2018 11:30 Labor Evaluation Frequency: 0 Monitor Mode: External Pattern: Normal: <= 5 Contractions in 10 Minutes Resting Tone Mccleary: Relaxed Heart Rate FHR Baseline Rate: 140 Monitor Mode: External US FHR Baseline Changes: No Baseline Change Variability: Moderate 6-25 bpm Accelerations: 15X15 Decelerations: None Category: Category I Datetime: 12/10/2018 10:30 Labor Evaluation Frequency: 0 Monitor Mode: External Pattern: Normal: <= 5 Contractions in 10 Minutes Resting Tone Mccleary: Relaxed Heart Rate FHR Baseline Rate: 140 Monitor Mode: External US FHR Baseline Changes: No Baseline Change Variability: Moderate 6-25 bpm Accelerations: 15X15 Decelerations: None Category: Category I Datetime: 12/10/2018 09:37 Labor Evaluation Frequency: OCC Monitor Mode: External Duration (sec)2399: 40 Quality: Mild Pattern: Normal: <= 5 Contractions in 10 Minutes Resting Tone Mccleary: Relaxed Heart Rate FHR Baseline Rate: 130 Monitor Mode: External US FHR Baseline Changes: No Baseline Change Variability: Moderate 6-25 bpm Accelerations: 15X15 Decelerations: None Category: Category I Datetime: 12/10/2018 09:31 Stage of : Antepartum Datetime: 12/10/2018 08:37 Assessment Type: Ongoing Assessment Maternal Assessment Level of Consciousness: Fully Conscious DTR's/Clonus: DTRs 2+; No Clonus Headache: Denies Blurred Vision: No Respiratory Effort: Unlabored; Regular Rhythm; Equal Expansion Breath Sounds, Left: Clear and Equal Breath Sounds, Right: Clear and Equal Nausea/Vomiting: Denies RUQ Epigastric Pain: Denies Lower Extremities Edema: None Degree: None Upper Extremities Edema: None Degree: None Facial Edema: None Fall Risk Assessment History of Falling: (0) No Secondary Diagnosis: (0) No Ambulatory Aid: (0) Bedrest/Nurse Assist IV Therapy: (20) Yes Gait: (0) Normal/Bedrest/Immobile Mental Status: (0) Oriented to Own Ability Fall Score: 20 Fall Risk Score Definition: No Risk: No action required Datetime: 12/10/2018 08:33 Labor Evaluation Frequency: OCC Monitor Mode: External Quality: Mild Pattern: Normal: <= 5 Contractions in 10 Minutes Resting Tone Mccleary: Relaxed Contraction Comments: DOES NOT FEEL CONTRACTIONS Heart Rate FHR Baseline Rate: 135 Monitor Mode: External US FHR Baseline Changes: No Baseline Change Variability: Moderate 6-25 bpm Accelerations: 15X15 Decelerations: None Category: Category I Datetime: 12/10/2018 08:22 Stage of : Antepartum Datetime: 12/10/2018 08:15 Stage of : Antepartum Temperature Route: Oral Pain Assessment Pain Scale: 0 Pain Presence: None/Denies Pain Goal: 0 Datetime: 12/10/2018 07:00 Labor Evaluation Frequency: x1 with irritability Monitor Mode: External Duration (sec)2399: 40 Heart Rate FHR Baseline Rate: 130 Monitor Mode: External US Variability: Moderate 6-25 bpm Accelerations: 15X15 Decelerations: None Category: Category I Datetime: 12/10/2018 06:00 Labor Evaluation Frequency: irritability Monitor Mode: External Heart Rate FHR Baseline Rate: 125 Monitor Mode: External US Variability: Moderate 6-25 bpm Accelerations: 15X15 Decelerations: Variable Category: Category II Comments: Some loss of contact Datetime: 12/10/2018 05:21 Resting Tone Mccleary: Relaxed Contraction Comments: Abdomen soft on palpation. No contractions palpated at this time. Pain Assessment Pain Scale: 0 Pain Presence: None/Denies Pain Type: N/A Datetime: 12/10/2018 05:00 Labor Evaluation Frequency: none Monitor Mode: External Heart Rate FHR Baseline Rate: 130 Monitor Mode: External US Variability: Moderate 6-25 bpm Accelerations: 15X15 Decelerations: None Category: Category I Comments: Some loss of contact Datetime: 12/10/2018 04:34 Resting Tone Mccleary: Relaxed Contraction Comments: Abdomen soft on palpation. No contractions palpated at this time. Comments: Active movement noted on palpation. Datetime: 12/10/2018 04:05 Stage of : Antepartum Temperature Route: Oral Comments: Patient states she feels active movement Pain Assessment Pain Scale: 0 Pain Presence: None/Denies Pain Type: N/A Pain Assessment Comments: Patient is sleeping in between care. Patient appears comforable. Datetime: 12/10/2018 04:00 Labor Evaluation Frequency: x1 with irritability Monitor Mode: External Duration (sec)2399: 80 Heart Rate FHR Baseline Rate: 120 Monitor Mode: External US Variability: Moderate 6-25 bpm Accelerations: 15X15 Decelerations: None Category: Category I Comments: Some loss of contact Datetime: 12/10/2018 03:08 Pain Assessment Comments: Patient is sleeping and appears comfortable. Datetime: 12/10/2018 03:00 Labor Evaluation Frequency: x4 Monitor Mode: External Duration (sec)2399: 40-70 Heart Rate FHR Baseline Rate: 120 Monitor Mode: External US Variability: Moderate 6-25 bpm Accelerations: 15X15 Decelerations: None Category: Category I Datetime: 12/10/2018 02:25 Resting Tone Mccleary: Relaxed Contraction Comments: Abdomen soft on palpation. No contractions palpated at this time. Pain Assessment Pain Scale: 0 Pain Presence: None/Denies Pain Type: N/A Pain Assessment Comments: Patient is sleeping in between care. Patient appears comfortable. Datetime: 12/10/2018 02:00 Labor Evaluation Frequency: x4 Monitor Mode: External Duration (sec)2399: 40-70 Heart Rate FHR Baseline Rate: 120 Monitor Mode: External US Variability: Moderate 6-25 bpm Accelerations: Prolonged Decelerations: None Category: Category I Comments: Some loss of contact Datetime: 12/10/2018 01:00 Labor Evaluation Frequency: x5 with irritability Monitor Mode: External Duration (sec)2399: 40-130 Heart Rate FHR Baseline Rate: 125 Monitor Mode: External US Variability: Moderate 6-25 bpm Accelerations: 15X15 Decelerations: Late Category: Category II Comments: Some loss of contact Datetime: 12/10/2018 00:51 Resting Tone Mccleary: Relaxed Contraction Comments: Abdomen soft on palpation. No contractions palpated Pain Assessment Pain Scale: 0 Pain Presence: None/Denies Pain Type: N/A Pain Assessment Comments: Patient sleeping in between care. Datetime: 12/10/2018 00:00 Labor Evaluation Frequency: x1 with irritability Monitor Mode: External Duration (sec)2399: 50 Heart Rate FHR Baseline Rate: 125 Monitor Mode: External US Variability: Moderate 6-25 bpm Accelerations: Prolonged Decelerations: None Category: Category I Datetime: 12/09/2018 23:57 Stage of : Antepartum Temperature Route: Oral Pain Assessment Pain Scale: 0 Pain Presence: None/Denies Pain Type: N/A Pain Assessment Comments: Patient denies feeling contractions at this time (Annotations: Patient sl eeping in between care. ) Datetime: 12/09/2018 23:00 Labor Evaluation Frequency: none Monitor Mode: External Heart Rate FHR Baseline Rate: 130 Monitor Mode: External US Variability: Moderate 6-25 bpm Accelerations: 15X15 Decelerations: None Category: Category I Comments: Some loss of contact Datetime: 12/09/2018 22:15 Pain Assessment Pain Scale: 0 Pain Presence: None/Denies Pain Type: N/A Datetime: 12/09/2018 22:00 Labor Evaluation Frequency: x2 Monitor Mode: External Duration (sec)2399: 40-70 Heart Rate FHR Baseline Rate: 130 Monitor Mode: External US Variability: Moderate 6-25 bpm Accelerations: 15X15 Decelerations: None Category: Category I Comments: Some loss of contact Datetime: 12/09/2018 21:52 Resting Tone Mccleary: Relaxed Contraction Comments: Abdomen soft on palpation. No contractions palpated at this time. Comments: Active movement noted per palpation at this time. Patient states she feels active f etal movement. Pain Assessment Pain Scale: 0 Pain Presence: None/Denies Pain Type: N/A Datetime: 12/09/2018 21:23 Resting Tone Mccleary: Relaxed Pain Assessment Pain Scale: 0 Pain Presence: None/Denies Pain Type: N/A Datetime: 12/09/2018 21:00 Labor Evaluation Frequency: x3 Monitor Mode: External Duration (sec)2399: 40-100 Heart Rate FHR Baseline Rate: 135 Monitor Mode: External US Variability: Moderate 6-25 bpm Accelerations: Prolonged Decelerations: None Category: Category I Datetime: 12/09/2018 20:07 Pain Assessment Pain Scale: 0 Pain Presence: None/Denies Pain Type: N/A Datetime: 12/09/2018 20:00 Labor Evaluation Frequency: none Monitor Mode: External Heart Rate FHR Baseline Rate: 135 Monitor Mode: External US Variability: Moderate 6-25 bpm Accelerations: Prolonged Decelerations: None Category: Category I Comments: Some loss of contact Datetime: 12/09/2018 19:20 Stage of : Antepartum Assessment Type: Ongoing Assessment Maternal Assessment Level of Consciousness: Fully Conscious DTR's/Clonus: DTRs 2+; No Clonus Headache: Denies Blurred Vision: No Respiratory Effort: Unlabored; Regular Rhythm; Equal Expansion Breath Sounds, Left: Clear and Equal Breath Sounds, Right: Clear and Equal Nausea/Vomiting: Denies RUQ Epigastric Pain: Denies Lower Extremities Edema: None Degree: None Upper Extremities Edema: None Degree: None Facial Edema: None Temperature Route: Oral Fall Risk Assessment History of Falling: (0) No Secondary Diagnosis: (0) No Ambulatory Aid: (0) Bedrest/Nurse Assist IV Therapy: (20) Yes Gait: (0) Normal/Bedrest/Immobile Mental Status: (0) Oriented to Own Ability Fall Score: 20 Fall Risk Score Definition: No Risk: No action required Comments: Patient states she feels active movement. Pain Assessment Pain Scale: 7 Pain Presence: Intermittent Pain Type: Ache Pain Location: Abdomen Pain Relief Measures: Comfort Measures Pain Assessment Comments: Patient denies feeling contractions at this time. Datetime: 12/09/2018 19:17 Resting Tone Mccleary: Relaxed Contraction Comments: Abdomen soft on palpation. Datetime: 12/09/2018 18:48 Labor Evaluation Frequency: 2 Monitor Mode: External Duration (sec)2399: 60-100 Quality: Mild Resting Tone Mccleary: Relaxed Heart Rate FHR Baseline Rate: 130 Monitor Mode: External US FHR Baseline Changes: No Baseline Change Variability: Moderate 6-25 bpm Accelerations: 15X15 Decelerations: None Category: Category I Datetime: 12/09/2018 18:00 Labor Evaluation Frequency: 0ccasional irritability Monitor Mode: External Quality: Mild Resting Tone Mccleary: Relaxed Heart Rate FHR Baseline Rate: 140 Monitor Mode: External US FHR Baseline Changes: No Baseline Change Variability: Moderate 6-25 bpm Accelerations: 15X15 Decelerations: None Category: Category I Pain Assessment Pain Scale: 2 Pain Presence: Intermittent Pain Type: Contraction Datetime: 12/09/2018 16:48 Labor Evaluation Frequency: 1 Monitor Mode: External Duration (sec)2399: 50 Quality: Mild Resting Tone Mccleary: Relaxed Heart Rate FHR Baseline Rate: 130 Monitor Mode: External US FHR Baseline Changes: No Baseline Change Variability: Moderate 6-25 bpm Accelerations: 15X15 Decelerations: None Category: Category I Datetime: 12/09/2018 16:04 Labor Evaluation Frequency: 0 Monitor Mode: External Resting Tone Mccleary: Relaxed Heart Rate FHR Baseline Rate: 140 Monitor Mode: External US FHR Baseline Changes: No Baseline Change Variability: Moderate 6-25 bpm Accelerations: 15X15 Decelerations: None Category: Category I Datetime: 12/09/2018 15:03 Labor Evaluation Frequency: 2 Monitor Mode: External Duration (sec)2399: 40 Quality: Mild Resting Tone Mccleary: Relaxed Heart Rate FHR Baseline Rate: 130 Monitor Mode: External US FHR Baseline Changes: No Baseline Change Variability: Moderate 6-25 bpm Accelerations: 15X15 Decelerations: None Category: Category I Datetime: 12/09/2018 14:02 Labor Evaluation Frequency: 1 Monitor Mode: External Duration (sec)2399: 60 Quality: Mild Resting Tone Mccleary: Relaxed Heart Rate FHR Baseline Rate: 130 Monitor Mode: External US FHR Baseline Changes: No Baseline Change Variability: Moderate 6-25 bpm Accelerations: 15X15 Decelerations: None Category: Category I Datetime: 12/09/2018 13:51 Pain Assessment Comments: pt continues to complain of intermittent pain in incision site Datetime: 12/09/2018 13:01 Labor Evaluation Frequency: 0 Monitor Mode: External Resting Tone Mccleary: Relaxed Heart Rate FHR Baseline Rate: 130 Monitor Mode: External US FHR Baseline Changes: No Baseline Change Variability: Moderate 6-25 bpm Accelerations: 15X15 Decelerations: Late; Variable Category: Category II Datetime: 12/09/2018 12:02 Labor Evaluation Frequency: irritability Monitor Mode: External Quality: Mild Resting Tone Mccleary: Relaxed Heart Rate FHR Baseline Rate: 150 Monitor Mode: External US FHR Baseline Changes: No Baseline Change Variability: Moderate 6-25 bpm Accelerations: 15X15 Decelerations: None Category: Category I Datetime: 12/09/2018 11:43 Pain Assessment Pain Scale: 9 Pain Type: Contraction Datetime: 12/09/2018 09:58 Labor Evaluation Frequency: x3 Monitor Mode: External Duration (sec)2399: 60 Quality: Mild Pattern: Normal: <= 5 Contractions in 10 Minutes Resting Tone Mccleary: Relaxed Contraction Comments: uc with irritability Heart Rate FHR Baseline Rate: 145 Monitor Mode: External US Variability: Moderate 6-25 bpm Accelerations: 15X15 Decelerations: None Category: Category I Datetime: 12/09/2018 08:59 Labor Evaluation Frequency: OCC Monitor Mode: External Duration (sec)2399: 50-60 Quality: Mild Pattern: Normal: <= 5 Contractions in 10 Minutes Resting Tone Mccleary: Relaxed Heart Rate FHR Baseline Rate: 135 Monitor Mode: External US Variability: Moderate 6-25 bpm Accelerations: 15X15 Decelerations: None Category: Category I Datetime: 12/09/2018 07:58 Labor Evaluation Frequency: x2 Monitor Mode: External Duration (sec)2399: 60-70 Quality: Mild Pattern: Normal: <= 5 Contractions in 10 Minutes Resting Tone Mccleary: Relaxed Contraction Comments: uc with irritability Heart Rate FHR Baseline Rate: 135 Monitor Mode: External US Variability: Moderate 6-25 bpm Accelerations: 15X15 Decelerations: None Category: Category I Pain Assessment Pain Scale: 8 Pain Presence: Intermittent Pain Type: Pressure Pain Location: Abdomen Pain Goal: 3 Pain Assessment Comments: lower abd. pain Datetime: 12/09/2018 07:26 Assessment Type: Ongoing Assessment Maternal Assessment Level of Consciousness: Fully Conscious DTR's/Clonus: DTRs 2+; No Clonus Headache: Denies Blurred Vision: No Respiratory Effort: Unlabored; Regular Rhythm; Equal Expansion Breath Sounds, Left: Clear and Equal Breath Sounds, Right: Clear and Equal Nausea/Vomiting: Denies RUQ Epigastric Pain: Denies Lower Extremities Edema: None Degree: None Upper Extremities Edema: None Facial Edema: None Fall Risk Assessment History of Falling: (0) No Secondary Diagnosis: (0) No Ambulatory Aid: (0) Bedrest/Nurse Assist IV Therapy: (20) Yes Gait: (0) Normal/Bedrest/Immobile Mental Status: (0) Oriented to Own Ability Fall Score: 20 Fall Risk Score Definition: No Risk: No action required Datetime: 12/09/2018 07:00 Stage of : Antepartum Labor Evaluation Frequency: irregular Monitor Mode: External Pattern: Normal: <= 5 Contractions in 10 Minutes Resting Tone Mccleary: Relaxed Heart Rate FHR Baseline Rate: 135 Monitor Mode: External US Variability: Moderate 6-25 bpm Accelerations: 15X15 Decelerations: None Category: Category I Datetime: 12/09/2018 06:27 Assessment Type: Ongoing Assessment Datetime: 12/09/2018 06:00 Stage of : Antepartum Labor Evaluation Frequency: irregular Monitor Mode: External Pattern: Normal: <= 5 Contractions in 10 Minutes Resting Tone Mccleary: Relaxed Heart Rate FHR Baseline Rate: 135 Monitor Mode: External US Variability: Moderate 6-25 bpm Accelerations: 15X15 Decelerations: None Category: Category I Datetime: 12/09/2018 05:00 Stage of : Antepartum Labor Evaluation Frequency: irregular Monitor Mode: External Pattern: Normal: <= 5 Contractions in 10 Minutes Resting Tone Mccleary: Relaxed Heart Rate FHR Baseline Rate: 125 Monitor Mode: External US Variability: Moderate 6-25 bpm Accelerations: 15X15 Decelerations: Variable Category: Category II Comments: possible loss of contact picking up maternal heart rate. Datetime: 12/09/2018 04:30 Stage of : Antepartum Labor Evaluation Frequency: irregular Monitor Mode: External Pattern: Normal: <= 5 Contractions in 10 Minutes Resting Tone Mccleary: Relaxed Heart Rate FHR Baseline Rate: 130 Monitor Mode: External US Variability: Moderate 6-25 bpm Accelerations: 15X15 Decelerations: None Category: Category I Datetime: 12/09/2018 03:34 Monitor Mode: External Monitor Mode: External US Datetime: 12/09/2018 03:20 Stage of : Antepartum Labor Evaluation Frequency: irregular Monitor Mode: External Pattern: Normal: <= 5 Contractions in 10 Minutes Resting Tone Mccleary: Relaxed Heart Rate FHR Baseline Rate: 135 Monitor Mode: External US Variability: Moderate 6-25 bpm Accelerations: 15X15 Decelerations: None Category: Category I Datetime: 12/09/2018 03:07 Stage of : Antepartum Temperature Route: Oral Datetime: 12/09/2018 02:30 Stage of : Antepartum Labor Evaluation Frequency: irregular Monitor Mode: External Pattern: Normal: <= 5 Contractions in 10 Minutes Resting Tone Mccleary: Relaxed Heart Rate FHR Baseline Rate: 135 Monitor Mode: External US Variability: Moderate 6-25 bpm Accelerations: 15X15 Decelerations: Variable (Annotations: variable decel x1 in 1hr) Category: Category II Datetime: 12/09/2018 01:30 Stage of : Antepartum Labor Evaluation Frequency: irregular Monitor Mode: External Pattern: Normal: <= 5 Contractions in 10 Minutes Resting Tone Mccleary: Relaxed Heart Rate FHR Baseline Rate: 135 Monitor Mode: External US Variability: Moderate 6-25 bpm Accelerations: 15X15 Decelerations: None Category: Category I Datetime: 12/09/2018 00:30 Stage of : Antepartum Labor Evaluation Frequency: irregular Monitor Mode: External Pattern: Normal: <= 5 Contractions in 10 Minutes Resting Tone Mccleary: Relaxed Heart Rate FHR Baseline Rate: 145 Monitor Mode: External US Variability: Moderate 6-25 bpm Accelerations: 15X15 Decelerations: None Category: Category I Datetime: 12/08/2018 23:30 Stage of : Antepartum Labor Evaluation Frequency: irregular Monitor Mode: External Pattern: Normal: <= 5 Contractions in 10 Minutes Resting Tone Mccleary: Relaxed Heart Rate FHR Baseline Rate: 145 Monitor Mode: External US Variability: Moderate 6-25 bpm Accelerations: 15X15 Decelerations: None Category: Category I Datetime: 12/08/2018 23:05 Stage of : Antepartum Temperature Route: Oral Datetime: 12/08/2018 23:03 Monitor Mode: External Monitor Mode: External US Datetime: 12/08/2018 22:30 Stage of : Antepartum Labor Evaluation Frequency: irregular Monitor Mode: External Pattern: Normal: <= 5 Contractions in 10 Minutes Resting Tone Mccleary: Relaxed Heart Rate FHR Baseline Rate: 145 Monitor Mode: External US Variability: Moderate 6-25 bpm Accelerations: 15X15 Decelerations: None Category: Category I Datetime: 12/08/2018 22:12 Monitor Mode: External Monitor Mode: External US Datetime: 12/08/2018 21:30 Stage of : Antepartum Labor Evaluation Frequency: irregular Monitor Mode: External Pattern: Normal: <= 5 Contractions in 10 Minutes Resting Tone Mccleary: Relaxed Heart Rate FHR Baseline Rate: 145 Monitor Mode: External US Variability: Moderate 6-25 bpm Accelerations: 15X15 Decelerations: None Category: Category I Datetime: 12/08/2018 20:30 Stage of : Antepartum Labor Evaluation Frequency: irregular Monitor Mode: External Pattern: Normal: <= 5 Contractions in 10 Minutes Resting Tone Mccleary: Relaxed Heart Rate FHR Baseline Rate: 150 Monitor Mode: External US Variability: Moderate 6-25 bpm Accelerations: 15X15 Decelerations: None Category: Category I Datetime: 12/08/2018 19:30 Stage of : Antepartum Labor Evaluation Frequency: occassional Monitor Mode: External Duration (sec)2399: 50-70 Pattern: Normal: <= 5 Contractions in 10 Minutes Resting Tone Mccleary: Relaxed Heart Rate FHR Baseline Rate: 140 Monitor Mode: External US Variability: Moderate 6-25 bpm Accelerations: 15X15 Decelerations: None Category: Category I Datetime: 12/08/2018 19:20 Stage of : Antepartum Datetime: 12/08/2018 19:10 Stage of : Antepartum Assessment Type: Ongoing Assessment Maternal Assessment Level of Consciousness: Fully Conscious DTR's/Clonus: DTRs 2+; No Clonus Headache: Denies Blurred Vision: No Respiratory Effort: Unlabored; Regular Rhythm; Equal Expansion Breath Sounds, Left: Clear and Equal Breath Sounds, Right: Clear and Equal Nausea/Vomiting: Denies RUQ Epigastric Pain: Denies Facial Edema: None Temperature Route: Oral Fall Risk Assessment History of Falling: (0) No Secondary Diagnosis: (0) No Ambulatory Aid: (0) Bedrest/Nurse Assist IV Therapy: (20) Yes Gait: (0) Normal/Bedrest/Immobile Mental Status: (0) Oriented to Own Ability Fall Score: 20 Fall Risk Score Definition: No Risk: No action required Datetime: 12/08/2018 18:52 Labor Evaluation Frequency: x2 Monitor Mode: External Duration (sec)2399: 40 Quality: Mild Resting Tone Mccleary: Relaxed Interventions: Side to Side Heart Rate FHR Baseline Rate: 140 Monitor Mode: External US FHR Baseline Changes: No Baseline Change Variability: Moderate 6-25 bpm Accelerations: 15X15 Decelerations: Variable Category: Category II Datetime: 12/08/2018 18:00 Labor Evaluation Frequency: x3 Monitor Mode: External Duration (sec)2399: 40-60 Quality: Mild Resting Tone Mccleary: Relaxed Interventions: Side to Side Contraction Comments: pt denies feeling UCs Heart Rate FHR Baseline Rate: 135 Monitor Mode: External US FHR Baseline Changes: No Baseline Change Variability: Moderate 6-25 bpm Accelerations: 15X15 Decelerations: Variable Category: Category II Datetime: 12/08/2018 17:00 Labor Evaluation Frequency: x6 Monitor Mode: External Duration (sec)2399: 30-40 Quality: Mild Resting Tone Mccleary: Relaxed Heart Rate FHR Baseline Rate: 140 Monitor Mode: External US FHR Baseline Changes: No Baseline Change Variability: Moderate 6-25 bpm Accelerations: 15X15 Decelerations: Variable Category: Category II Datetime: 12/08/2018 16:00 Labor Evaluation Frequency: x5 Monitor Mode: External Duration (sec)2399: 30-50 Quality: Mild Resting Tone Mccleary: Relaxed Heart Rate FHR Baseline Rate: 135 Monitor Mode: External US FHR Baseline Changes: No Baseline Change Variability: Moderate 6-25 bpm Accelerations: 15X15 Decelerations: Variable Category: Category II Datetime: 12/08/2018 15:16 Stage of : Antepartum Temperature Route: Oral Pain Assessment Pain Scale: 0 Pain Presence: None/Denies Pain Type: N/A Datetime: 12/08/2018 15:00 Stage of : Antepartum Maternal Assessment Level of Consciousness: Fully Conscious DTR's/Clonus: DTRs 1+ Headache: Denies Breath Sounds, Left: Clear and Equal Breath Sounds, Right: Clear and Equal Nausea/Vomiting: Denies RUQ Epigastric Pain: Denies Labor Evaluation Frequency: X4 Monitor Mode: External Duration (sec)2399: 40-60 Quality: Mild Pattern: Normal: <= 5 Contractions in 10 Minutes Resting Tone Mccleary: Relaxed Interventions: Side to Side Heart Rate FHR Baseline Rate: 135 Monitor Mode: External US Variability: Moderate 6-25 bpm Accelerations: 15X15 Pain Assessment Pain Scale: 3 Pain Presence: Constant Pain Type: Ache Pain Location: Abdomen Pain Goal: 3 Vaginal Exam Membrane Status: Intact Datetime: 12/08/2018 14:00 Stage of : Antepartum Maternal Assessment Level of Consciousness: Fully Conscious DTR's/Clonus: DTRs 1+ Headache: Denies Breath Sounds, Left: Clear and Equal Breath Sounds, Right: Clear and Equal Nausea/Vomiting: Denies RUQ Epigastric Pain: Denies Labor Evaluation Frequency: OCC Monitor Mode: External Duration (sec)2399: 40-60 Quality: Mild Pattern: Normal: <= 5 Contractions in 10 Minutes Resting Tone Mccleary: Relaxed Heart Rate FHR Baseline Rate: 145 Monitor Mode: External US Variability: Moderate 6-25 bpm Accelerations: 15X15 Decelerations: Variable Category: Category II Comments: PT REPOSITIONED Pain Assessment Pain Scale: 3 Pain Presence: Constant Pain Type: Ache Pain Location: Abdomen Pain Goal: 3 Vaginal Exam Membrane Status: Intact Datetime: 12/08/2018 13:55 Comments: variable noted, from baseline 135 down to 60 bpm for 30 sec and then going up to baseline , pt repositioned again to her left side o2, IV increased Datetime: 12/08/2018 13:01 Stage of : Antepartum Datetime: 12/08/2018 13:00 Stage of : Antepartum Maternal Assessment Level of Consciousness: Fully Conscious DTR's/Clonus: DTRs 1+ Headache: Denies Breath Sounds, Left: Clear and Equal Breath Sounds, Right: Clear and Equal Nausea/Vomiting: Denies RUQ Epigastric Pain: Denies Labor Evaluation Frequency: NONE Monitor Mode: External Resting Tone Mccleary: Relaxed Interventions: Side to Side Heart Rate FHR Baseline Rate: 145 Monitor Mode: External US Variability: Moderate 6-25 bpm Accelerations: 15X15 Decelerations: Variable Category: Category II Pain Assessment Pain Scale: 3 Pain Presence: Constant Pain Type: Ache Pain Location: Abdomen Pain Goal: 3 Vaginal Exam Membrane Status: Intact Datetime: 12/08/2018 12:52 Stage of : Antepartum Datetime: 12/08/2018 12:00 Stage of : Antepartum Maternal Assessment Level of Consciousness: Fully Conscious DTR's/Clonus: DTRs 1+ Headache: Denies Breath Sounds, Left: Clear and Equal Breath Sounds, Right: Clear and Equal Nausea/Vomiting: Denies RUQ Epigastric Pain: Denies Labor Evaluation Frequency: NONE Monitor Mode: External Resting Tone Mccleary: Relaxed Contraction Comments: PT COMPLAINING OF INCISION PAIN, ABDOMEN PALPETED SOFT AT THIS TIME Heart Rate FHR Baseline Rate: 145 Monitor Mode: External US Variability: Moderate 6-25 bpm Accelerations: 15X15 Decelerations: Variable Category: Category II Pain Assessment Pain Scale: 3 Pain Presence: Constant Pain Type: Ache Pain Location: Abdomen Pain Goal: 3 Vaginal Exam Membrane Status: Intact Datetime: 12/08/2018 11:21 Stage of : Antepartum Datetime: 12/08/2018 11:18 Stage of : Antepartum Lower Extremities Edema: None Degree: None Upper Extremities Edema: None Degree: None Fall Score: 0 Fall Risk Score Definition: No Risk: No action required Datetime: 12/08/2018 11:16 Stage of : Antepartum Datetime: 12/08/2018 11:01 Stage of : Antepartum Datetime: 12/08/2018 09:58 Fall Score: 0 Fall Risk Score Definition: No Risk: No action required Datetime: 12/08/2018 09:43 EGA: 35.1 Datetime: 12/05/2018 10:45 Fall Score: 0 Fall Risk Score Definition: No Risk: No action required Datetime: 12/05/2018 10:44 EGA: 34.5 Datetime: 12/03/2018 23:51 EGA: 34.3
[2018-12-27] MEDS ORDERED: CARBOPROST 250 MCG INJ IM PRN ×2 (14:00→23:00)
[2018-12-27] MEDS ORDERED: CEFAZOLIN 2 GM/50 ML (PMX) 50 ML IVPB SCH (14:00)
[2018-12-27] MEDS ORDERED: METHYLERGONOVINE 0.2 MG INJ IM PRN ×2 (14:00→23:00)
[2018-12-27] MEDS ORDERED: OXYTOCIN 30 UNITS/LR 500 ML IV PRN ×2 (14:00→23:00)
[2018-12-27] MEDS ORDERED: MISOPROSTOL 200 MCG TAB PR PRN ×2 (14:00→23:00)
[2018-12-27] MEDS ORDERED: AZITHROMYCIN 500MG/NS (PMX) 250 ML IVPB ONE (17:30)
--- NOTE | 2018-12-27 17:50 | HP ---
"Date/Time of Note Date/Time of Note DATE: 12/27/18 TIME: 17:32 OB - History Hx of Present Free Text/Dictation 23y.0 [id number] had x2 c/s present with pain on incisional site received aneesh during course due to hx of PTB EFM shows uc's which started at 0900 today which is regular pain level is 8/10 which is progressively worse prepared to have repeat c/s . Chief Complaint: incisional pain and UC's Estimated Due Date: Jan 11, 2019 : 3 Para: 2 Spontaneous : 0 Therapeutic : 0 Care: Good Care Ultrasounds: Normal mid trimester US Obstetrical Complications: None Medical Complications: None Past Family/Social History * Past Medical, Surgical, Family and Obstetric Histories reviewed from [facility]. Blood Type: O+ Rubella: immune RPR/VDRL: Negative GBS Status: Unknown HBsAG: Negative OB Admission Exam Vital Signs Vital Signs Vital Signs Date Temp Pulse Resp B/P (MAP) Pulse Ox O2 O2 Flow FiO2 Time Delivery Rate 12/27/18 97.7 122/65 11:26 (84) Physical Exam HEENT: WNL Heart: Rhythm Normal Lungs: Clear, Equal Abdomen: WNL Extremities: Normal Reflexes: Normal Cervical Dilatation: other Effacement: Other Station: Other Membranes: Intact Amniotic Fluid: Unevaluable Heart Rate: 140's Accelerations: Accelerations Present Decelerations: No Decelerations Varibility: Moderate Contractions on Admission: < 5 Minutes Apart Intensity: Moderate Last 72 hours Lab Results CBC & BMP 12/27/18 13:54 OB Assessment/Plan Reason for admission: active labor Other Assessment: IU|P 37weeks X2 Previous c/s Plan: Section SHERYL MARCUS MD Dec 27, 2018 17:44"
--- NOTE | 2018-12-27 17:52 | PREAC ---
Date/Time of Note Date/Time of Note DATE: 12/27/18 TIME: 17:51 Anesthesia Eval and Record Evaluation Time Pre-Procedure Interview DATE: 12/27/18 TIME: 17:51 Age 23 Sex female NPO: 8 hrs Preoperative diagnosis IUP Planned procedure L&D Epidural Past Medical History Past Medical History: None Surgery & Anesthesia Issues No known issue Meds Anticoagulation: No Beta Salma within 24 hr: No Reason Beta Salma not given: Pt. not on B-Salma Reported Medications Vit #76/Iron,Carb/FA (Prenatabs Rx Tablet) 1 Each Tablet, 1 EACH PO DAILY, TAB 12/03/18 Current Medications Lactated Ringer's 1,000 ml @ 125 mls/hr Q8H IV Last administered on 12/27/18at 17:19; Admin Dose 125 MLS/HR; Start 12/27/18 at 13:35 Cefazolin Sodium/ Dextrose 50 ml @ 100 mls/hr ONCE IVPB ; Start 12/27/18 at 14:00 Oxytocin/Lactated Ringer's 500 ml @ 0 mls/hr ONCE PRN IV .VAGINAL BLEEDING; Start 12/27/18 at 14:00 Methylergonovine Maleate (Methergine) 0.2 mg ONCE PRN IM .VAGINAL BLEEDING; Start 12/27/18 at 14:00 Carboprost Tromethamine (Hemabate) 250 mcg ONCE PRN IM .VAGINAL BLEEDING; Start 12/27/18 at 14:00 Misoprostol (Cytotec) 1,000 mcg ONCE PRN AL .VAGINAL BLEEDING; Start 12/27/18 at 14:00 Azithromycin 250 ml @ 250 mls/hr ONCE ONCE IVPB Last administered on 12/27/18at 17:45; Admin Dose 250 MLS/HR; Start 12/27/18 at 17:30; Stop 12/27/18 at 18:29 Meds reviewed: Yes Allergies Coded Allergies: No Known Allergy (Unverified , 12/08/18) Allergies Reviewed: Yes Labs/Studies Labs Reviewed: Reviewed by anesthesiologist Result Diagram: 12/27/18 1354 Laboratory Tests 12/27/18 13:54 Blood Bank Test 12/27/18 13:54 Blood Type O POSITIVE Rh Immune Globulin Candidate NO test: Positive Pre-procedure Exam Last vitals Vital Signs Date Temp Pulse Resp B/P (MAP) Pulse Ox O2 O2 Flow FiO2 Time Delivery Rate 3/29/19 97.7 122/65 11:26 (84) Airway: Adequate mouth opening, Adequate thyromental dist Mallampati: Mallampati II Teeth: Normal Lung: Normal Heart: Normal ASA Physical Status ASA physical status: 2 Emergency: None Planned Anesthetic Neuraxial: Spinal, Epidural Planned Pain Management Sub-arachniod narcotics, Parenteral pain med Pre-operative Attestations Prior to commencing anesthesia and surgery, the patient was re-evaluated, there was verification of: *The patient's identity *The results of appropriate recent lab work and preoperative vital signs *The above evaluation not changing prior to induction *Anesthetic plan, risk benefits, alternative and complications discussed with patient/family; questions answered; patient/family understands, accepts and wishes to proceed. JOSE MARCH MD Dec 27, 2018 17:52
[2018-12-27] MEDS ORDERED: ONDANSETRON 4 MG INJ ONE (18:26)
[2018-12-27] MEDS ORDERED: morphine SULFATE/PF (10 MG/10 ML) INJ ONE (18:26)
[2018-12-27] MEDS ORDERED: OXYTOCIN 10 UNIT INJ ONE (18:27)
[2018-12-27] MEDS ORDERED: FENTAnyl 50 MCG/ML VIAL ONE ×3 (19:32→20:18)
[2018-12-27] MEDS ORDERED: PHENYLephrine 10 MG INJ ONE (20:39)
--- NOTE | 2018-12-27 21:24 | PAC ---
Date/Time of Note Date/Time of Note DATE: 12/27/18 TIME: 21:24 Post-Anesthesia Notes Post-Anesthesia Note Last documented vital signs Vital Signs Date Temp Pulse Resp B/P (MAP) Pulse Ox O2 O2 Flow FiO2 Time Delivery Rate 12/27/18 97.7 122/65 11:26 (84) Activity: WNL Respiratory function: WNL Cardiovascular function: WNL Mental status: Baseline Pain reasonably controlled: Yes Hydration appropriate: Yes Nausea/Vomiting absent: Yes Comments BP:112/56, P:78, Spo2:100%, T:98.9 JOSE MARCH MD Dec 27, 2018 21:24
[2018-12-27] MEDS ORDERED: DIPHENHYDRAMINE 50 MG INJ IV PRN ×2 (21:30→23:00)
[2018-12-27] MEDS ORDERED: morphine 2 MG INJ IV PRN (21:30)
[2018-12-27] MEDS ORDERED: ONDANSETRON 4 MG INJ IV PRN ×2 (21:30→23:00)
[2018-12-27] MEDS ORDERED: NALOXONE (0.4 MG/ML) INJ IV PRN (21:30)
--- NOTE | 2018-12-27 21:31 | OPPN ---
Date/Time of Note Date/Time of Note DATE: 12/27/18 TIME: 21:27 Operative Report Planned Procedure Procedure date Dec 27, 2018 Procedure(s) RLTC/S lysis of adhesion Performed by see signature line Sheet Metal Mechanic: EBONY LOWE MD 2nd Sheet Metal Mechanic none Anesthesiologist: JOSE MARCH MD Pre-procedure diagnosis [id number] X2 previous c/s in labor [id number] Anesthesia Type: [id number] spinal Post-Procedure Post-procedure diagnosis delivered normal female severe pelvic omental adhesions rt paratubal cyst Findings Live Baby [f], Apgars [8] and [9], weight [7lb 4oz], position [lot], vx] presentation no[]cord. Estimated Blood Loss: other Specimen(s) none Grafts/Implant(s) none Complication(s) none SHERYL MARCUS MD Dec 27, 2018 21:31
[2018-12-27] MEDS ORDERED: LANOLIN HPA 1 PKT TOP PRN (23:00)
[2018-12-27] MEDS ORDERED: ZOLPIDEM 5 MG TAB PO PRN (23:00)
[2018-12-27] MEDS: OXYTOCIN 30 UNITS/LR 500 ML IV SCH (23:03)
[2018-12-28] VITALS (10 sets, daily range): BP systolic 91–111; BP diastolic 50–65; PULSE 86–111; RESP 16–18
[2018-12-28] MEDS ORDERED: LACTATED RINGER'S 500 ML IV ONE
--- NOTE | 2018-12-28 01:34 | OPR ---
DATE OF OPERATION: 12/27/2018 PREOPERATIVE DIAGNOSIS: at 37 weeks and 6 days with 2 previous sections, in labor . POSTOPERATIVE DIAGNOSES: 1. Delivered normal female , 2. Severe pelvic adhesions. 3. Multiple omental adhesions. PROCEDURES: Repeat low transverse section and lysis of multiple adhesions. ANESTHESIA: Spinal. ANESTHESIOLOGIST: Dr. Marino. SURGEON: Katherine White MD E LEARNING COORDINATOR: Darrel Wallis MD ESTIMATED BLOOD LOSS: Approximately 800 mL. DESCRIPTION OF PROCEDURE: Under proper induction of spinal anesthesia, the patient was placed in the frog position. Valenzuela catheter was introduced into the bladder under sterile condition and repositio phong to supine. Abdominal wall was prepped and draped in usual aseptic manner. A transverse incision was made along the previous incisional scar. Scar tissue was excised. Incision was carried down th rough the subcutaneous tissue to the anterior recti fascia, which was incised transversely in length of the incision. The fascial flap was created by blunt and sharp dissection of tendinous attachment with the difficult time because of the fibrotic changes from the previous surgery. After entering th e peritoneal cavity, it was difficult to get into because the bladder peritoneum was pulled up by a s evere adhesion and there were multiple omental adhesions noted upon entering the peritoneal cavity. The visceral peritoneum along with the filmy adhesion was digitally and blindly removed and able to r each the low segment of the uterus, but on top of that, there were multiple omentum that was attached to the left aspect of the entire uterine serosa that was covered with a spreading omental adhesion n oted, which was very friable and caused bleeding by gentle touching. A transverse incision was made by avoiding all this omental adhesions layer by layer, reached the amniotic membrane, ruptured, revea led clear amniotic fluid and normal female was delivered by using Kiwi suction briefly 1 time and the mouth and nose were cleaned and cord was delayed clamped and cut, [facility] to [facility] care per [facility] for [facility] care. Cord blood was obtained. The placenta was removed manually and the cavity was completely explored after uterus was exteriorized. During the exteriorization of the uterus, the re were multiple bleeders noted from the omentum, which was spread over the uterine serosa plus multi ple small adhesions along the parietal peritoneum, which was by severing and the pedicle wa s ligated with 0 chromic catgut. During this procedure, there is so much bleeding noted from the ome ntal adhesion. Uterine incision was closed with #1 chromic catgut in continuous interlocking manner and then second layer also using 0 chromic catgut in continuous manner, thus imbricating the first la alondra of closure. There was a bleeder on the left side in the middle portion, which was separately yesica sed with 0 chromic catgut in [id number] manner in multiple spot. After the uterine incision was closed and multiple bleeders from the omental adhesion was also closed individually, upon entering t he abdominal cavity, it was very tight, so muscle was severed on the right rectus muscle near the ins ertion. The bleeding from that lesion and also muscle was toned on the left side, which also caused the continuous oozing and the muscle also had multiple spot, which has a lot of bleeders, which were separately controlled with a suture. After uterus was relocated and after irrigation was done and pr ior to closure of the abdominal wall, there were continuous multiple bleeding spots, which were contr olled by ligature and using electrocauterization. After a lengthy time to control the bleeder ____ e nough to close the abdominal wall. At this point, there was no any clear peritoneal lining visualize d because this is all covered with omentum and to avoid another bleeding, muscle was closed over with 0 chromic catgut in continuous manner. The rectus muscle near the insertion site, which bled separa tely controlled the bleeding by using 0 chromic catgut. The fascia was closed with a #1 Vicryl in co ntinuous manner in 2 segments. Prior to closing the muscle layer, the piece of Surgicel was applied on the uterine incisional site and also covered with Interceed over the anterior uterine wall where t he omental adhesion was noted and then muscle was closed with 0 chromic catgut in continuous manner. The fascia was closed with #1 Vicryl in continuous manner in 2 segments after the Surgicel was place d on top of the rectus muscle. Subcutaneous tissue was irrigated with water. This layer was approxi mated with a 2-0 plain in continuous manner and the skin was closed with a 3-0 Monocryl in subcuticul ar manner. Steri-Strips were applied. A pressure dressing was applied. Estimated blood loss was ap proximately 800 mL. The patient withstood the procedure and was sent to the recovery room in stable condition. Dictated By: KATHERINE APTEL/KATHY Conf#: [id number] DID#: [id number]
[2018-12-28] MEDS: OXYTOCIN 30 UNITS/LR 500 ML IV SCH (07:01)
[2018-12-28] MEDS: KETOROLAC 30 MG INJ IV PRN ×2 (11:37→17:28)
[2018-12-28] MEDS: LACTATED RINGER'S 1,000 ML IV SCH ×2 (11:40→20:00)
[2018-12-28] MEDS ORDERED: OXYCODONE/ACETAMINOPHEN (5/325) TAB PO PRN ×2 (18:40)
[2018-12-28] MEDS: SENNA/DOCUSATE NA (8.6MG/50MG) TAB PO SCH (21:19)
[2018-12-29 03:45] VITALS: BP 112/62; PULSE 104; RESP 18
[2018-12-29] MEDS: LACTATED RINGER'S 1,000 ML IV SCH (04:00)
[2018-12-29] MEDS: IBUPROFEN 600 MG TAB PO SCH ×4 (05:22→17:09)
[2018-12-29 07:50] VITALS: BP 92/50; PULSE 104; RESP 17
[2018-12-29] MEDS: SENNA/DOCUSATE NA (8.6MG/50MG) TAB PO SCH ×2 (09:04→21:32)
--- NOTE | 2018-12-29 09:56 | QN ---
Documentation Comment POD #2 s/p Pt feels well and is w/o a problem. Good pain control. T=98.7 BP 112/62 Fundus firm and at the umbilicus. Incision is clean, dry, and intact. Ext 1+ edema, NT. WBC 14.1 Hgb 8.5 Plts 176K P: Continue care. Plan d/c tomorrow. EBONY LOWE MD Dec 29, 2018 09:56
[2018-12-29 16:21] VITALS: BP 111/60; PULSE 97; RESP 18
[2018-12-29 19:30] VITALS: BP 104/56; PULSE 95; RESP 20
[2018-12-29 20:00] VITALS: BP 104/56; PULSE 95; RESP 16
--- NOTE | 2018-12-29 20:06 | QN ---
Documentation Comment This is a late entry note for 12/28/2018 Postop day #1 S/P R C/S Patient stable and afebrile Tolerating regular diet and ambulating and voiding without any difficulties Vital signs stable VS - Last 72 Hours, by Label Date Temp Pulse Resp B/P (MAP) Pulse Ox O2 O2 Flow FiO2 Time Delivery Rate 12/29/18 98.0 97 18 111/60 Room Air 16:21 (77) 12/29/18 98.3 104 17 92/50 (64) Room Air 07:50 12/29/18 98.7 104 18 112/62 Room Air 03:45 (79) 12/28/18 98.9 111 18 109/55 98 Room Air 20:50 (73) 12/28/18 99.3 110 18 92/50 (64) 98 Room Air 15:07 12/28/18 99.1 100 18 98/56 (70) 97 Room Air 12:00 12/28/18 99.4 101 18 111/60 98 Room Air 08:10 (77) 12/28/18 96 18 92/50 (64) 98 Room Air 07:15 12/28/18 103 16 91/53 (66) 100 Room Air 07:00 12/28/18 102 18 92/57 (69) 100 Room Air 06:45 12/28/18 98.2 102 16 97/65 (76) 99 Room Air 06:31 12/28/18 96 18 98/56 (70) 100 Room Air 06:15 12/28/18 86 16 96/51 (66) 100 Room Air 05:59 12/27/18 97.7 122/65 11:26 (84) Hematology - 72 Hrs Test 12/27/18 13:54 12/28/18 00:37 12/28/18 04:34 12/28/18 14:39 Hematocrit 34.9 25.0 24.7 26.5 % (37.0-47.0) % (37.0-47.0) % (37.0-47.0) % (37.0-47.0) L #L L L Hemoglobin 11.3 8.0 7.9 8.5 g/dl (12.0-16.0 g/dl (12.0-16. g/dl (12.0-16. g/dl (12.0-16. ) L 0) #L 0) L 0) L Mean 28.6 28.9 28.6 28.4 Corpuscular pg (29.0-33.0) pg (29.0-33.0) pg (29.0-33.0) pg (29.0-33.0) Hemoglobin L L L L Mean 32.4 32.0 32.0 32.1 Corpuscular g/dl (32.0-37.0 g/dl (32.0-37. g/dl (32.0-37. g/dl (32.0-37. Hemoglobin Conc ) 0) 0) 0) ent Mean 88.4 90.3 89.5 88.6 Corpuscular fl (82.0-101.0) fl (82.0-101.0 fl (82.0-101.0 fl (82.0-101.0 Volume ) ) ) Mean Platelet 9.5 9.2 8.5 8.9 Volume fl (7.4-10.4) fl (7.4-10.4) fl (7.4-10.4) fl (7.4-10.4) Platelet Count 224 185 156 176 10^3/UL (140-41 10^3/UL (140-4 10^3/UL (140-4 10^3/UL (140-4 5) 15) 15) 15) Red Blood 3.95 2.77 2.76 2.99 Count 10^6/ul (4.20-5 10^6/ul (4.20- 10^6/ul (4.20- 10^6/ul (4.20- .40) L 5.40) #L 5.40) L 5.40) L Red Cell 14.6 14.5 14.4 14.6 Distribution % (11.5-14.5) % (11.5-14.5) % (11.5-14.5) % (11.5-14.5) Width H H White Blood 10.4 13.1 11.7 14.1 Count 10^3/ul (4.8-10 10^3/ul (4.8-1 10^3/ul (4.8-1 10^3/ul (4.8-1 .8) # 0.8) #H 0.8) H 0.8) #H Chemistry Test 12/28/18 04:34 Sodium Level 138 mmol/L (135-144) Potassium Level 4.2 mmol/L (3.5-5.1) Chloride Level 107 mmol/L (97-110) Carbon Dioxide Level 26 mmol/L (21-31) Anion Gap 5 (5-13) Blood Urea Nitrogen 8 mg/dl (7-20) Creatinine 0.54 mg/dl (0.44-1.00) Est Glomerular Filtrat Rate mL/min > 60 mL/min (>60) Glucose Level 72 mg/dl (70-220) Calcium Level 8.0 mg/dl (8.4-10.2) L Total Bilirubin 0.3 mg/dl (0.2-1.3) Direct Bilirubin 0.00 mg/dl (0.00-0.20) Indirect Bilirubin 0.3 mg/dl (0-1.1) Aspartate Amino Transf (AST/SGOT) 27 IU/L (15-46) Alanine Aminotransferase (ALT/SGPT) 18 IU/L (13-69) Alkaline Phosphatase 76 IU/L (42-121) Total Protein 4.8 g/dl (6.1-8.1) L Albumin 2.4 g/dl (3.3-4.9) L Globulin 2.40 g/dl (1.3-3.2) Albumin/Globulin Ratio 1.00 Abdomen soft, fundus firm Incision C/D/I Extremities nontender Assessment and plan; Patient stable and doing well Encouraged to ambulate Continue with routine postop care RADHA TAI MD Dec 29, 2018 20:06
[2018-12-30] MEDS: IBUPROFEN 600 MG TAB PO SCH ×4 (02:02→18:06)
[2018-12-30 08:45] VITALS: BP 118/76; PULSE 90; RESP 16
[2018-12-30] MEDS ORDERED: DIPHTH/TET/ACEL PERTUSS (ADULT) 0.5 ML VIAL IM* ONE (09:00)
[2018-12-30] MEDS ORDERED: FERROUS GLUCONATE (EC) 325 MG TAB PO SCH (09:00)
[2018-12-30] MEDS: SENNA/DOCUSATE NA (8.6MG/50MG) TAB PO SCH (09:08)
--- NOTE | 2018-12-30 11:23 | QN ---
Documentation Comment progress note pod 3 patient seen and evaluated no compliants vs stable afebrile ab c/d/i no distention nt extremity no edema no calf tenderness a/ sp r cd with btl pod 3 stable afebrile p iron supplement repeat h/h today before discharge today FRANCY VENEGAS MD Dec 30, 2018 11:23
--- NOTE | 2018-12-30 11:24 | PD.PPDC ---
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
[2018-12-30 15:45] VITALS: BP 112/77; PULSE 86; RESP 16
[2018-12-30 19:35] VITALS: BP 121/75; PULSE 80; RESP 16
--- NOTE | 2018-12-30 21:07 | DS ---
DATE OF ADMISSION: 12/27/2018 DATE OF DISCHARGE: 12/30/2018 PRIMARY DIAGNOSES: 1. Intrauterine at 37 weeks and 6 days' gestational age. 2. Two previous sections. 3. In labor. PROCEDURE: Repeat low transverse delivery with lysis of multiple adhesions. CONDITION ON DISCHARGE: Stable. ACTIVITY: None per vagina, no lifting x6 weeks. DIET: Regular. MEDICATIONS ON DISCHARGE: 1. Motrin. 2. Iron. DISCHARGE SUMMARY: Ms. Kelly Wilkerson underwent a repeat delivery with lysis of adhesions on 12/27/2018. She had uneventful postop day 1, 2 and 3. Her incision is clean, dry and intact. She is ambulating, tolerating diet, positive bowel movement before discharge. She will have a repeat H a nd H to assure H and H is stable. She will follow up in the clinic in 2 weeks for /postop care. Dictated By: FRANCY ESTRADA/KATHY Conf#: [id number] DID#: [id number]
--- NOTE | 2018-12-31 21:33 | DELSUM ---
Delivery Summary A-C Datetime Report Generated by CPN: 12/31/2018 21:33 DELIVERY PERSONNEL Sterile Supervisor: Dries, Apolinar MATERNAL INFORMATION Delivery Anesthesia: Spinal Medications in Delivery: LR WITH 30 UNITS PITOCIN Delivery QBL (ml): 800 Placenta Cultured: No Maternal Complications: None LABOR SUMMARY EDC: 01/11/2019 00:00 No. Babies in Womb: 1 Attempted: No Labor Anesthesia: Intrathecal LABOR INFORMATION Reason for Induction: Not Applicable Oxytocin: N/A Group B Beta Strep: Negative Antibiotics # of Doses: 2 Antibiotics Time of Last Dose: 12/27/2018 19:05 Steroids Given: Full Course Reason Steroids Not Administered: Not Applicable MEMBRANES Membranes Rupture Method: Artificial Rupture of Membranes: 12/27/2018 19:36 Length of Rupture (hr): 0.03 Amniotic Fluid Color: Clear Amniotic Fluid Amount: Large Amniotic Fluid Odor: None STAGES OF LABOR Stage 3 hr: 0 Stage 3 min: 1 CSECTION DELIVERY Primary Indication: Repeat Elective Secondary Indication: Repeat Elective CSection Urgency: Elective CSection Incidence: Repeat Labor: Labor Elective: Elective CSection Incision: Lower Uterine Transverse BABY A INFORMATION Infant Delivery Date/Time: 12/27/2018 19:38 Method of Delivery: Born in Route : No : N/A Forceps: N/A Vacuum Extraction: Successful Shoulder Dystocia : N/A ASSISTED DELIVERY BABY A Vacuum Number of Pulls: 1 Vacuum Number of PopOffs: 0 Vacuum Toy Stuffer: KIWI Total Time Vacuum Applied: 30 SECONDS Vacuum/Forceps Comment: PRESSURE CONTROLLED BY MD. SHOULDER DYSTOCIA BABY A Infant Delivery Date/Time: 12/27/2018 19:38 PRESENTATION/POSITION BABY A Presentation: Cephalic Cephalic Presentation: Vertex Vertex Position: Left Occipital Anterior Breech Presentation: N/A PLACENTA INFORMATION BABY A Placenta Delivery Time : 12/27/2018 19:39 Placenta Method of Delivery: Manual Removal Placenta Status: Delivered SCORES BABY A Heart Rate 1 min: >100 bpm Resp Effort 1 min: Good Cry Reflex Irritability 1 min: Cough/Sneeze/Pulls Away Muscle Tone 1 min: Active Motion Color 1 min: Blue/Pale Resuscitation Effort 1 min: Tactile Stimulation; PPV/NCPAP SCORE 1 MIN: 8 Heart Rate 5 min: >100 bpm Resp Effort 5 min: Good Cry Reflex Irritability 5 min: Cough/Sneeze/Pulls Away Muscle Tone 5 min: Active Motion Color 5 min: Body Bath, Extremit Blue Resuscitation Effort 5 min: Tactile Stimulation SCORE 5 MIN: 9 INFORMATION BABY A Gestational Age at Delivery: 37.6 Gestational Status: Early Term- 37- 38.6 Weeks Infant Outcome : Liveborn Infant Condition : Stable Sex: Female IDENTIFICATION/MEDS BABY A ID Band Number: [id number] ID Band Location: Right Leg; Left Arm Sensor Applied: Yes Sensor Number: [id number] Sensor Location : Cord Clamp Vitamin K Given : Not Given Erythromycin Given: Not Given WEIGHT/LENGTH BABY A Birthweight (gm): 3275 Infant Weight (lb): 7 Infant Weight (oz): 4 Length (in): 19.00 Length (cm): 48.26 CORD INFORMATION BABY A No. Cord Vessels: 3 Nuchal Cord : N/A Cord Blood Taken: Yes Suction: Mouth; Nose; Pharynx ASSESSMENT BABY A Complications: None Physical Findings at Delivery: Within Normal Limits Respirations: Appears Normal Third Loader/ALS Called : No Infant Care By: Abigail MARIE RN Transferred To: Remains with Mother
== END 2018-12-30 21:00 | disposition home or self-care (01) | DRG 788 ==
LOC: L-D 11:18 → OBT 11:18 → L-D 13:44 → UNDODISIN 12-28 08:06 → PP1 12-28 08:08
PROVIDERS: ADMIT Obstetrics & Gynecology; ATTEND Obstetrics & Gynecology
PROC: 0DNW0ZZ Release Peritoneum, Open Approach (ICD-10-PCS; 2018-12-27)
PROC: 10D00Z1 Extraction of Products of Conception, Low, Open Approach (ICD-10-PCS; principal; 2018-12-27 19:30)
DX: O34.211 Maternal care for low transverse scar from previous cesarean delivery (principal); O99.89 Other specified diseases and conditions complicating pregnancy, childbirth and the puerperium; N73.6 Female pelvic peritoneal adhesions (postinfective); Z3A.37 37 weeks gestation of pregnancy; Z37.0 Single live birth
CPT/HCPCS: 76818; 80053; 81001; 85014; 85018; 85025; 85610; 85730; 86592; 86850; 86900; 86901; 87086; 88305; 96360; 99464; G0463; J0456; J0690; J1885; J2270; J2274; J2405; J2590; J3010; J7120